=== PATIENT | female | born 1950 | race African-American/Black ===

== ENCOUNTER 2016-12-28 15:19 | Inpatient (IN) ==
[2016-12-28] MEDS ORDERED: PANTOPRAZOLE 40 MG VIAL IV STA (17:25)
[2016-12-28] MEDS ORDERED: LORazepam 2 MG/1 ML VIAL IV STA (17:25)
[2016-12-28] MEDS ORDERED: SODIUM CHLORIDE 0.9% 1,000 ML IV STA (17:25)
--- NOTE | 2016-12-28 17:34 | Emergency Department Note ---
IPat Brittany, am scribing for, and in the presence of, Brinda Donaldson DO 17: 30. IMendoza Debra, DO, personally performed the services described in this documentation, ascribed by Melania Stewart in my presence, and it is both accurate and complete [id number] . Arrival - Arrival Chief Complaint: GI Bleed/Rectal Stated Complaint: blood in stool ED Nursing Triage Note: BRIGHT RED BLOOD IN STOOL TODAY AROUND 1300 HOURS, HX OF DIVERTICULITIS Mode of Arrival: Ambulatory Limitations: No Limitations Source: Patient Time Seen by Provider: 12/28/16 17:18 - History of Present Illness HPI Narrative: This is a 66 y/o black female,who presents to the ED for further evaluation of hematochezia which started at 1315 today. She states the blood is bright red in color. She states she has had similar Sx in the past and was hospitalized for the Sx. She reports she has had 3 episodes of the bloody stools. She reports a known Hx of diverticulitis. Pt has no other complaints/pain in the ED at this time. Pt has a PMHx of IDDM, HTN, and diverticulitis. Pt denies a surgical Hx. Pt denies a family medical Hx. Pt denies a social Hx. Onset (ago): hour(s) (Started at 1315 today) Consistency: constant Severity: moderate, similar to previous episodes Allergies/Adverse Reactions: Allergies Allergy/AdvReac Type Severity Reaction Status Date / Time Penicillins Allergy RASH Verified 12/28/16 16:00 Home Medications: Home Medications Medication Instructions Recorded Confirmed Type Aspirin [Ecotrin] 81 mg PO QAM 07/23/15 12/28/16 History Ergocalciferol (Vitamin D2) 50,000 unit PO Q30D 07/23/15 12/28/16 History [Vitamin D2] Insulin Lispro Prot/Lisp 50/50 10 units SUBCUT TID W/MEALS 07/23/15 12/28/16 History [HumaLOG Mix 50/50] Omeprazole 20 mg PO BID 07/23/15 12/28/16 History rOPINIRole [Requip] 0.5 mg PO BEDTIME 07/23/15 12/28/16 History Atorvastatin [Lipitor] 10 mg PO QAM 10/11/16 12/28/16 History Celecoxib [Celebrex] 200 mg PO QAM 10/11/16 12/28/16 History Gabapentin Cap/Tab [Neurontin 300 mg PO QAM 10/11/16 12/28/16 History Cap/Tab] Losartan [Cozaar] 50 mg PO QAM 10/11/16 12/28/16 History Review of System - Review of System 12 point system: reviewed and no additional remarkable complaints except as stated - Review of System Gastrointestinal: Present: hematochezia Medical,Surgical,& Family Hx - Medical History Cardio: History of: Hypertension Endocrine: History of: Diabetes Mellitus (IDDM) Gastrointestinal: History of: Diverticulitis/ Diverticulosis Musculoskeletal: History of: Musculoskeletal Problems (GENERALIZED ARTHRITIS) - Social History Smoking Status: Never smoker Exam Vital Signs: Vital Signs Temperature 98.2 F 12/28/16 15:57 Pulse Rate 114 H 12/28/16 15:57 Respiratory Rate 16 12/28/16 15:57 Blood Pressure 116/73 12/28/16 15:57 O2 Sat by Pulse Oximetry 108 H 12/28/16 15:57 - General General appearance: in no apparent distress - Head Head exam: Present: atraumatic, normocephalic, normal inspection - Eye Eye exam: Present: normal appearance, PERRL, EOMI. Absent: nystagmus, miosis, mydriasis - ENT ENT exam: Present: normal exam, normal oropharynx, mucous membranes moist, TM's normal bilaterally, normal external ear exam - Neck Neck exam: Present: normal inspection, full ROM, trachea midline. Absent: tenderness, meningismus, lymphadenopathy, thyromegaly - Chest Chest inspection: Present: normal inspection, symmetric chest wall rise. Absent : tenderness, rash, abscess - Respiratory Respiratory exam: Present: normal lung sounds bilaterally. Absent: rales, respiratory distress, rhonchi, stridor, wheezes - Cardiovascular Cardiovascular exam: Present: normal rhythm, tachycardia, normal heart sounds. Absent: murmur, rubs, gallop, clicks, JVD - Rectal Exam Rectal exam: Present: deferred - Extremities Exam Extremities exam: Present: normal inspection, full ROM, normal capillary refill. Absent: tenderness, pedal edema, joint swelling, calf tenderness - Back Exam Back exam: Present: normal inspection, full ROM. Absent: tenderness, muscle spasm, rashes - Neurological Exam Neurological exam: Present: alert, oriented X3, CN II-XII intact. Absent: motor sensory deficit - Psychiatric Psychiatric exam: Present: anxious. Absent: normal affect, normal mood, depressed, agitated, flat affect - Skin Skin exam: Present: warm, dry, intact, normal color. Absent: rash, cyanosis, diaphoresis, erythema, pallor, mottled Course Course Narrative: pt has had 3 or 4 bloody stools since being here, she reports . spoke with Dr Caballero who will admit pt Results - Labs CBC & BMP: 12/28/16 17:48 12/28/16 17:48 Lab Results: I have reviewed the patients labs Labs: Laboratory Tests 12/28/16 12/28/16 12/28/16 17:48 17:48 17:48 WBC 5.8 RBC 3.13 L Hgb 9.4 L Hct 28.1 L MCV 89.8 MCH 30 MCHC 33.5 RDW 13.4 Plt Count 161 MPV 11.0 Neut % (Auto) 65.5 Lymph % (Auto) 24.4 [facility] % (Auto) 9.1 Eos % (Auto) 0.5 Baso % (Auto) 0.2 Neut # (Auto) 3.8 Lymph # (Auto) 1.4 [facility] # (Auto) 0.5 Eos # (Auto) 0.0 Baso # (Auto) 0.0 Immature Gran % 0.3 Nucleated RBC % 0.0 Immature Gran # 0.02 Nucleated RBCs # 0.00 INR 1.1 PT Patient/Control Mix 11.4 Circ Anticoag PTT 25.9 Sodium 143 Potassium 4.0 Chloride 110 H Carbon Dioxide 21 Anion Gap 16.0 H BUN 32 H Creatinine 1.30 H GFR Calculation 57 BUN/Creatinine Ratio 24.00 H Glucose 154 H Calculated Osmolality 294.0 Calcium 9.3 Total Bilirubin 0.40 AST 29 ALT 24 Alkaline Phosphatase 69 Total Protein 6.7 Albumin 3.3 L Globulin 3.4 Albumin/Globulin Ratio 0.9 L Lipase 12/28/16 17:48 WBC RBC Hgb Hct MCV MCH MCHC RDW Plt Count MPV Neut % (Auto) Lymph % (Auto) [facility] % (Auto) Eos % (Auto) Baso % (Auto) Neut # (Auto) Lymph # (Auto) [facility] # (Auto) Eos # (Auto) Baso # (Auto) Immature Gran % Nucleated RBC % Immature Gran # Nucleated RBCs # INR PT Patient/Control Mix Circ Anticoag PTT Sodium Potassium Chloride Carbon Dioxide Anion Gap BUN Creatinine GFR Calculation BUN/Creatinine Ratio Glucose Calculated Osmolality Calcium Total Bilirubin AST ALT Alkaline Phosphatase Total Protein Albumin Globulin Albumin/Globulin Ratio Lipase 160.0 - Diagnostic Findings Procedure: CT Abdomen and Pelvis: other (diverticulosis is present. 2. Bilateral renal hypodenese lesions within the left reanl cortex and rigth parapelvic kidney possibly reflect cysts. 3. Other findings as detailed. ) Disposition Clinical Impression: Lower gastrointestinal hemorrhage Case discussed with: patient Disposition: Still a Patient Condition: Stable Time of Disposition: 19:54
[2016-12-28] MEDS ORDERED: PANTOPRAZOLE 40 MG VIAL IV ONE (17:39)
[2016-12-28] MEDS ORDERED: LORazepam 2 MG/1 ML VIAL ONE (17:40)
[2016-12-28 18:15] LABS: Basophils % 0.2 % (0.0-0.8); Eosinophils % 0.5 % (0.00-10.9); Hematocrit 28.1 VOL% (35.7-47.0); Hemoglobin 9.4 GM/DL (12.0-16.0); Immature Granulocytes % 0.3 %; Immature Granulocytes Absolute 0.02 #; Lymphocytes # 1.4 10*3/uL (1.4-4.0); Lymphocytes % 24.4 % (21.3-54.2); Mean Corpuscular HGB Conc 33.5 GM/DL (32-36); Mean Corpuscular Hemoglobin 30 PG (27-34); Mean Corpuscular Volume 89.8 FL (87-102); Monocytes # 0.5 10*3/uL (0.11-0.8); Monocytes % 9.1 % (1.7-12.7); Neutrophils # 3.8 10*3/uL (1.4-7.4); Neutrophils % 65.5 % (38.7-73.9); Platelet Count 161 T/CUMM (130-400); Red Blood Count 3.13 MC/CUMM (3.8-5.5); Red Cell Distribution Width 13.4 % (9.3-17.3); White Blood Count 5.8 T/CUMM (4-12)
[2016-12-28 18:27] LABS: INR 1.1; PT Patient Result 11.4 SECS; Partial Thromboplastin Time 25.9 SECS (0-40)
[2016-12-28 18:53] LABS: Albumin 3.3 G/DL (3.4-5.0); Bilirubin,Total 0.4 MG/DL (0.2-1.0); Calcium 9.3 MG/DL (8.5-10.1); Total Protein 6.7 G/DL (6.4-8.3)
--- NOTE | 2016-12-28 19:36 | CT Report ---
CT abdomen pelvis wo con Indication: "Bleeding" no other history provided. Comparison: None. Technique: CT of the abdomen and pelvis was performed without administration of intravenous contrast. The CT examination was performed using one or more of the following dose reduction techniques: Automatic exposure control, adjustment of the mA and kV according to patient size, use of acute or iterative reconstruction techniques. Findings: The evaluation of "bleeding" is significantly limited by lack of intravenous contrast. Lower chest demonstrates no evidence of acute pathology. Gallbladder is surgically absent. The noncontrast enhanced liver is grossly unremarkable. Spleen is normal in size. Pancreas is grossly normal. The adrenal glands and kidneys demonstrate no acute findings. Hypoattenuating lesion left renal cortex measures 19 mm and possibly reflects cyst. Additional parapelvic hypoattenuating lesion right kidney image #41 measures 2.4 cm and could reflect additional cyst. Evaluation is limited secondary to lack of intravenous contrast. A moderate amount of stool is noted within the rectum. Minimal diverticulosis is present involving the splenic flexure and upper descending colon. A few scattered diverticula distally are present within the right hemicolon. The appendix is unremarkable. No adenopathy is demonstrated. The uterus is surgically absent. Bony structures demonstrate degenerative changes of the lumbar spine with loss of intervertebral disc space at L2-3 and vacuum disc phenomenon noted at L2-3 as well as L4-5. Soft tissues and musculature of the body wall demonstrate no acute findings. Impression: 1. Colonic diverticulosis is present. 2. Bilateral renal hypodense lesions within the left renal cortex and right parapelvic kidney possibly reflect cysts. 3. Other findings as detailed. 12/28/2016 7:21 PM PROCEDURE INTERPRETED AT [facility] DEPARTMENT OF RADIOLOGY Final Report Signed by: Dr. Oscar Cronin
--- NOTE | 2016-12-28 20:17 | Hospitalist History & Physical ---
Assessment and Plan - Time spent with patient Time spent with patient: Greater than 30 minutes (1) Lower gastrointestinal hemorrhage Status: Acute Assessment and plan: Admit to inpatient. Serial HHs. Consult GI. Dont anticipate scope until saturday, will order a diabetic diet. Current Visit: Yes (2) Diabetes mellitus Status: Acute Assessment and plan: Accuchecks and SSI. Diabetic diet. Current Visit: Yes (3) Hypertension Status: Acute Assessment and plan: Continue home medications. Current Visit: Yes History of Present Illness Chief complaint: bright red blood per rectum History of present illness: Ms. Diez is a 66 year old female with diabetes mellitus, diverticulosis, prior history of GI bleed, hypertension, who presents with rectal bleeding. She states it began suddenly at 1:15pm, had the urge to defecate and went to the restroom and noticed a large volume of bright red bloody stool. Denies mucous. She immediately came to the ER where she continues to have bright red bloody bowel movements. She states she had something similar twice in the past and it was due to "diverticulosis". She denies chest pain, SOB, abdominal pain, nausea , vomiting, hematemesis, melena, fever, chills, lightheadedness, syncope. Home Medications Medication Instructions Recorded Confirmed Type Aspirin [Ecotrin] 81 mg PO QAM 07/23/15 12/28/16 History Ergocalciferol (Vitamin D2) 50,000 unit PO Q30D 07/23/15 12/28/16 History [Vitamin D2] Insulin Lispro Prot/Lisp 50/50 10 units SUBCUT TID W/MEALS 07/23/15 12/28/16 History [HumaLOG Mix 50/50] Omeprazole 20 mg PO BID 07/23/15 12/28/16 History rOPINIRole [Requip] 0.5 mg PO BEDTIME 07/23/15 12/28/16 History Atorvastatin [Lipitor] 10 mg PO QAM 10/11/16 12/28/16 History Celecoxib [Celebrex] 200 mg PO QAM 10/11/16 12/28/16 History Gabapentin Cap/Tab [Neurontin 300 mg PO QAM 10/11/16 12/28/16 History Cap/Tab] Losartan [Cozaar] 50 mg PO QAM 10/11/16 12/28/16 History Allergies Allergy/AdvReac Type Severity Reaction Status Date / Time Penicillins Allergy RASH Verified 12/28/16 16:00 Medical,Surgical,& Family Hx - Medical History Cardio: History of: Hypertension Endocrine: History of: Diabetes Mellitus (IDDM) Gastrointestinal: History of: Diverticulitis/ Diverticulosis Musculoskeletal: History of: Musculoskeletal Problems (GENERALIZED ARTHRITIS) - Social History Smoking Status: Never smoker 12 point system: reviewed and no additional remarkable complaints except as stated - Constitutional Constitutional: Absent: chills, daytime sleepiness, excessive sweating, fatigue , fever(s), frequent falls, headache(s), increased appetite, lethargy, weakness , weight gain, weight loss - EENT Nose, mouth and throat: Absent: epistaxis, headache(s), nasal congestion, neck mass, neck pain, throat swelling, tongue swelling - Cardiovascular Cardiovascular: Absent: chest pain at rest, chest pain with activity, dyspnea, dyspnea on exertion, edema, orthopnea, palpitations - Respiratory Respiratory: Absent: cough, dyspnea, hemoptysis, dyspnea on exertion, wheezing - Gastrointestinal Gastrointestinal: Present: other (bright red blood per rectum). Absent: abdominal pain, bloating, change in bowel habits, coffee ground emesis, constipation, cramping, diarrhea, dyspepsia, dysphagia, early satiety, fecal incontinence, heartburn, hematemesis, hematochezia - Genitourinary Genitourinary: Absent: difficulty urinating, hematuria, menorrhagia, urinary hesitancy, urinary incontinence - Musculoskeletal Musculoskeletal: Absent: arthralgias, joint swelling - Neurological Neurological: Absent: behavioral changes, confusion, disequilibrium, dizziness, focal weakness, frequent falls, headache(s), numbness, syncope - Endocrine Endocrine: Absent: cold intolerance, heat intolerance, polydipsia, polyuria Exam - Constitutional Vitals: Period Temp Pulse Resp BP Sys/Osorio Pulse Ox Last 24 Hr 98.2 F-98.2 F 114-114 16-16 116-116/73-73 108 General appearance: no acute distress - Head Head exam: Present: normocephalic, atraumatic - Eye Eye exam: Present: EOMI Pupils: Present: MARISOL - ENT ENT exam: Present: normal exam - Neck Neck exam: Present: normal inspection - Respiratory Respiratory exam: Present: clear to auscultation bilaterally. Absent: rhonchi, wheezes - Cardiovascular Cardiovascular exam: Present: regular rate and rhythm. Absent: gallop, rubs, systolic murmur - GI/Abdominal GI/Abdominal exam: Present: normal bowel sounds, soft. Absent: distended, firm , guarding, tenderness, rebound - Extremities Exam Extremities exam: Present: normal inspection. Absent: calf tenderness, edema Results - Labs CBC & BMP: 12/28/16 17:48 12/28/16 17:48 Lab Results: I have reviewed the past 24 hour labs
[2016-12-28] MEDS ORDERED: DEXTROSE 50% 25 GM/50 ML VIAL IV PRN (20:30)
[2016-12-28] MEDS ORDERED: GLUCAGON 1 MG VIAL IM PRN (20:30)
[2016-12-28] MEDS: INSULIN LISPRO 100 UNIT/ML SUBCUT SCH (21:43)
[2016-12-28] MEDS: rOPINIRole 0.25 MG TABLET PO SCH (21:43)
[2016-12-29 06:12] LABS: Calcium 8.9 MG/DL (8.5-10.1); Osmolality,Calculated 289.1 MOS/KG (273-304); Potassium 4.3 MMOL/L (3.5-5.1)
[2016-12-29 07:23] LABS: Eosinophils % 0.6 % (0.00-10.9); Hematocrit 24.1 VOL% (35.7-47.0); Immature Granulocytes % 0.4 %; Immature Granulocytes Absolute 0.02 #; Lymphocytes # 1.5 10*3/uL (1.4-4.0); Lymphocytes % 28.9 % (21.3-54.2); Mean Corpuscular HGB Conc 33.2 GM/DL (32-36); Mean Corpuscular Hemoglobin 30 PG (27-34); Mean Corpuscular Volume 90.3 FL (87-102); Monocytes # 0.5 10*3/uL (0.11-0.8); Monocytes % 8.8 % (1.7-12.7); Neutrophils # 3.1 10*3/uL (1.4-7.4); Neutrophils % 61.3 % (38.7-73.9); Platelet Count 135 T/CUMM (130-400); Red Blood Count 2.67 MC/CUMM (3.8-5.5); Red Cell Distribution Width 13.5 % (9.3-17.3); White Blood Count 5.1 T/CUMM (4-12)
[2016-12-29] MEDS: LOSARTAN 50 MG TABLET PO SCH (08:55)
[2016-12-29] MEDS: ATORVASTATIN 10 MG TABLET PO SCH (08:55)
[2016-12-29] MEDS: GABAPENTIN 300 MG CAPSULE PO SCH (08:55)
[2016-12-29] MEDS: PANTOPRAZOLE 40 MG VIAL IV SCH (08:56)
[2016-12-29] MEDS: INSULIN LISPRO 100 UNIT/ML SUBCUT SCH ×5 (08:56→20:57)
--- NOTE | 2016-12-29 09:26 | Gastrointestinal Consult Note ---
Assessment and Plan - Time spent with patient Time spent with patient: Greater than 30 minutes (1) Lower gastrointestinal hemorrhage Status: Acute Current Visit: Yes (2) Anemia Status: Acute Current Visit: Yes (3) Other specified counseling Status: Acute Current Visit: Yes History of Present Illness History of present illness: Ms. Diez is a 66 year old female Home Medications Medication Instructions Recorded Confirmed Type Aspirin [Ecotrin] 81 mg PO QAM 07/23/15 12/28/16 History Ergocalciferol (Vitamin D2) 50,000 unit PO Q30D 07/23/15 12/28/16 History [Vitamin D2] Insulin Lispro Prot/Lisp 50/50 10 units SUBCUT TID W/MEALS 07/23/15 12/28/16 History [HumaLOG Mix 50/50] Omeprazole 20 mg PO BID 07/23/15 12/28/16 History rOPINIRole [Requip] 0.5 mg PO BEDTIME 07/23/15 12/28/16 History Atorvastatin [Lipitor] 10 mg PO QAM 10/11/16 12/28/16 History Celecoxib [Celebrex] 200 mg PO QAM 10/11/16 12/28/16 History Gabapentin Cap/Tab [Neurontin 300 mg PO QAM 10/11/16 12/28/16 History Cap/Tab] Losartan [Cozaar] 50 mg PO QAM 10/11/16 12/28/16 History Allergies Allergy/AdvReac Type Severity Reaction Status Date / Time Penicillins Allergy RASH Verified 12/28/16 16:00 Medical,Surgical,& Family Hx - Medical History Cardio: History of: Hypertension Endocrine: History of: Diabetes Mellitus (IDDM) Gastrointestinal: History of: Diverticulitis/ Diverticulosis Musculoskeletal: History of: Back/Neck Problems, Degenerative Disk Disease, Musculoskeletal Problems (GENERALIZED ARTHRITIS) - Surgical History Reproductive Surgeries: Surgical HX of;: Hysterectomy Orthopedic Surgeries: Surgical HX of;: Orthopedic Surgery (right knee) - Social History Smoking Status: Never smoker Frequency of Alcohol Use: None Type of Drug Use: None Exam - Constitutional Vitals: Period Temp Pulse Resp BP Sys/Osorio Pulse Ox Last 24 Hr 97.4 F-98.6 F 77-99 16-18 97-141/56-77 98-100 Results - Labs CBC & BMP: 12/29/16 06:51 12/29/16 05:18 Note Addendum: PLEASE NOTE -- automatic citation of patient information is unavoidable in this electronic note. I have made a reasonable effort to review the information cited , but it is not a part of my evaluation, impression, or recommendation unless specifically discussed in the dictated text that follows. As well, voice recognition software was used in the creation of this clinical note. Reasonable effort was made to identify and correct gross errors. Despite proofreading, errors in photograph mounter may be present, including nonsense verbiage at times. If you encounter such an error, please contact me at [phone] for discussion and correction. -- Stefany Chief complaint: gastrointestinal bleeding History of present illness: This is a new patient, a 66-year-old female seen by consultation for evaluation of rectal bleeding. The patient is admitted to the hospitalist service under the care of Dr. Mathew with a primary diagnosis of same. The patient was admitted yesterday through the emergency department with primary complaint of several episodes of bright red blood per rectum. Evaluation at that time revealed hemoglobin less than 10 g/dL, tachycardia without hypotension, and clinical stability generally. She reports at least two prior instances of rectal bleeding, 2003 and 2008, judged to be related to diverticular disease per her understanding. Since her admission she has been treated conservatively with crystalloid resuscitation and has no further bowel movements documented. Her hemodynamics have remained stable. Her hemoglobin has dropped to 8 g/dL but she has not required transfusion at this point. She reports a history of gastroesophageal reflux requiring daily proton pump inhibitor. She also reports regular use of both Celebrex and baby aspirin. She is unaware of any prior diagnosis of gastrointestinal ulceration. Patient denies fever, chills, night sweats, rigors, headache, dizziness, neck pain, visual changes, redness of the eyes, dysphagia, odynophagia, difficulty chewing, chest pain, shortness of breath, abdominal pain, weight loss, hematemesis, diarrhea, proctalgia, constipation, dysuria, skin changes, temperature regulation issues, flushing, easy bleeding/bruising, mental status change, numbness/weakness in the extremities, yellowing of the eyes/skin, cutaneous eruptions, family history of gastrointestinal cancer and colon polyps , and other complaints in general. Review of systems: 12 point review of systems was negative except as documented above. Outpatient medications: aspirin, vitamin D2, insulin, omeprazole, Requip, Lipitor, Celebrex, Neurontin, Cozaar Inpatient medications: Lipitor, Neurontin, insulin, Cozaar, Protonix, Requip Past Medical History: hypertension, diabetes, diverticulosis/diverticulitis, osteoarthritis Social history: negative tobacco. Negative alcohol Family history: no gastrointestinal cancers Physical examination: Vital Signs: Current vital signs reviewed and documented above. General Appearance: sitting in bedside chair. Comfortable. Not acutely ill. Head: Normocephalic. Neck: Palpation of the neck revealed no abnormalities. Eyes: No scleral icterus. No scleral injection. No conjunctival pallor. Oral Cavity: Odor of breath was normal. No drooling was observed. Lips showed no abnormalities. Floor of the mouth showed no abnormalities. Pharynx: Oropharynx was normal. Lungs: Respiration rhythm and depth was normal. Cardiovascular: Heart rate and rhythm were normal. No murmurs were appreciated. Abdomen: abdomen was not distended. Abdominal palpation revealed no tenderness and no hepatosplenomegaly. Ascites was not discovered. Abdominal auscultation revealed positive bowel sounds. Musculoskeletal System: Musculoskeletal system was grossly normal. Neurological: level of consciousness was normal. Speech was normal. Skin: General appearance was normal. Color and pigmentation were normal. No skin lesions. Laboratory: white blood count 5.1, hemoglobin 8.0, hematocrit 24.1, platelets 135, INR 1.1, PT 11.4, ALT 24, AST 29, total bilirubin 0.4, alkaline phosphatase 69, total protein 6.7 Radiology: CT of the abdomen and pelvis, December 28, 2016 -- colonic diverticulosis ; moderate amount of stool in the rectum; incidental non-gastrointestinal findings Impressions: 1. Hematochezia -- the differential diagnosis includes diverticular bleeding, infectious/inflammatory enterocolitis, arteriovenous malformation, hemorrhoidal bleeding, colon polyps (including cancer), and upper gastrointestinal bleeding. I recommend serial hemoglobin and hematocrit monitoring with transfusion as indicated. I recommend aggressive crystalloid resuscitation as indicated. I recommend intravenous proton pump inhibitor. Patient will need colonoscopy with timing dependent on clinical progress. If bleeding continues, this will need to be done during this admission. As well, given that the patient has not had any colonoscopy since 2008, it would be prudent and logistically convenient to monitor the patient over the weekend with plan to pursue colonoscopy on Saturday. 2. Acute blood loss anemia -- as documented, this is likely from diverticular bleeding. I recommend continued monitoring and management both during the admission discharge. 3. Other specified counseling -- The patient was seen for greater than 30 minutes. The patient was counseled for greater than 50% of this time regarding differential diagnosis, likely diagnosis, diagnostic and therapeutic alternatives, risks/benefits/alternatives of medications and procedures, and plan of care generally. The patient expressed understanding and wishes to proceed. Recommendations: -- aggressive crystalloid resuscitation -- transfusion as indicated -- serial hemoglobin and hematocrit monitoring -- colonoscopy with timing dependent on clinical progress -- patient may need upper endoscopy if bleeding continues and colonoscopy is nondiagnostic -- patient may need video capsule endoscopy if upper and lower endoscopy is nondiagnostic -- continued monitoring and management of anemia both during the admission and after discharge -- thank you for consultation. We will follow with you.
--- NOTE | 2016-12-29 16:34 | Hospitalist Progress Note ---
Assessment and Plan (1) Lower gastrointestinal hemorrhage Status: Acute Assessment and plan: Patient is not actively bleeding at this point. She is consulted to GI. Plan for Saturday. In the meantime patient will be observed closely on E. If bleeding continues as entailed by serial hemograms will his GI know. From the look of things at this point it looks like the lower GI bleeding was quite brisk. She will be a hypotension developed crystalloids will be given will check hematocrit and if indicated transfuse the patient. All his blood pressure remains normal try to avoid crystalloids and allow for eating and oral fluid resuscitation. She will be n.p.o. from midnight on Saturday. 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 Continue serial H&H every 12 hours. Current Visit: Yes Qualifiers: Anemia type: other cause Other causes of anemia: other cause, not classified Qualified Code(s): D64.89 - Other specified anemias Hospitalist: Subjective Interval history: Patient is seen interviewed and examined and chart has been reviewed. There are no complaints she has today is nausea. She has not noted any more hematochezia. Consultation from gastroenterology is greatly appreciated. Her last H&H was 8 and 24.1 I will repeat H&H 1800 hrs. this evening and at 600 hours tomorrow. Exam - Constitutional Vitals: Period Temp Pulse Resp BP Sys/Osorio Pulse Ox Last 24 Hr 97.4 F-98.6 F 77-100 16-18 92-141/42-77 95-100 General appearance: over weight - Head Head exam: Present: normal inspection, normocephalic - Eye Eye exam: Present: EOMI Pupils: Present: MARISOL - ENT ENT exam: Present: normal oropharynx - Neck Neck exam: Present: normal inspection, other (Supple neck no adenopathy no JVD) - Cardiovascular Cardiovascular exam: Present: regular rate and rhythm, other (Obtain an EKG) - GI/Abdominal GI/Abdominal exam: Present: normal bowel sounds, soft - Extremities Exam Extremities exam: Present: full ROM - Back Exam Back exam: Present: normal inspection - Neurological Exam Neurological exam: Present: alert, oriented X3, CN II-XII intact - Psychiatric Psychiatric exam: Present: normal affect, normal mood Results - Labs CBC & BMP: 12/29/16 06:51 12/29/16 05:18 Lab Results: I have reviewed the past 24 hour labs (Repeat H&H every 12 hours 24 hours)
[2016-12-29 17:20] LABS: Hematocrit 24.9 VOL% (35.7-47.0); Hemoglobin 8.1 GM/DL (12.0-16.0)
[2016-12-29] MEDS: rOPINIRole 0.25 MG TABLET PO SCH (20:56)
[2016-12-30] MEDS: LOSARTAN 50 MG TABLET PO SCH (08:23)
[2016-12-30] MEDS: PANTOPRAZOLE 40 MG VIAL IV SCH (08:23)
[2016-12-30] MEDS: ATORVASTATIN 10 MG TABLET PO SCH (08:23)
[2016-12-30] MEDS: GABAPENTIN 300 MG CAPSULE PO SCH (08:23)
[2016-12-30] MEDS: INSULIN LISPRO 100 UNIT/ML SUBCUT SCH ×4 (08:24→22:58)
[2016-12-30 10:04] LABS: Hematocrit 23.8 VOL% (35.7-47.0); Hemoglobin 7.9 GM/DL (12.0-16.0)
--- NOTE | 2016-12-30 10:31 | Gastrointestinal Progress Note ---
Assessment and Plan (1) Lower gastrointestinal hemorrhage Status: Acute Current Visit: Yes (2) Anemia Status: Acute Current Visit: Yes Qualifiers: Anemia type: other cause Other causes of anemia: other cause, not classified Qualified Code(s): D64.89 - Other specified anemias (3) Other specified counseling Status: Acute Current Visit: Yes Exam (Progress Note) - Constitutional Vitals: Period Temp Pulse Resp BP Sys/Osorio Pulse Ox Last 24 Hr 97.2 F-97.9 F 88-114 18-20 92-115/42-74 95-100 Results - Labs CBC & BMP: 12/30/16 09:30 12/29/16 05:18 Note Addendum: PLEASE NOTE -- automatic citation of patient information is unavoidable in this electronic note. I have made a reasonable effort to review the information cited , but it is not a part of my evaluation, impression, or recommendation unless specifically discussed in the dictated text that follows. As well, voice recognition software was used in the creation of this clinical note. Reasonable effort was made to identify and correct gross errors. Despite proofreading, errors in dental receptionist may be present, including nonsense verbiage at times. If you encounter such an error, please contact me at [phone] for discussion and correction. -- Stefany Chief complaint: gastrointestinal bleeding History of present illness: this is a 66-year-old female seen for follow-up of suspected lower gastrointestinal bleeding. Vital signs have been stable overnight. Blood counts have remained stable. One bowel movement was noted overnight with a small amount of bright red blood. The patient reports feeling reasonably well this morning. Review of systems: 12 point review of systems was negative except as documented above. Inpatient medications: Lipitor, Neurontin, insulin, Cozaar, Protonix, Requip Physical examination: Vital Signs: Current vital signs reviewed and documented above. General Appearance: sitting in bedside chair. Comfortable. Not acutely ill. Head: Normocephalic. Neck: Palpation of the neck revealed no abnormalities. Eyes: No scleral icterus. No scleral injection. No conjunctival pallor. Oral Cavity: Odor of breath was normal. No drooling was observed. Lips showed no abnormalities. Floor of the mouth showed no abnormalities. Pharynx: Oropharynx was normal. Lungs: Respiration rhythm and depth was normal. Cardiovascular: Heart rate and rhythm were normal. No murmurs were appreciated. Abdomen: abdomen was not distended. Abdominal palpation revealed no tenderness and no hepatosplenomegaly. Ascites was not discovered. Abdominal auscultation revealed positive bowel sounds. Musculoskeletal System: Musculoskeletal system was grossly normal. Neurological: level of consciousness was normal. Speech was normal. Skin: General appearance was normal. Color and pigmentation were normal. No skin lesions. Laboratory: hemoglobin 7.9, hematocrit 23.8 Radiology: reviewed Impressions: 1. Hematochezia -- minimal overt bleeding is noted overnight. I recommend continued monitoring with transfusion as indicated. After some discussion with the patient, I will recommend inpatient colonoscopy to be accomplished tomorrow. The patient will need to have intervenes access by whatever means necessary in order to facilitate transfusion should that come to pass and to allow for sedation. 2. Acute blood loss anemia -- as documented, this is likely from diverticular bleeding. The volume of bleeding has tremendous significantly but could resume. As discussed we will plant colonoscopy for tomorrow. 3. Other specified counseling -- The patient was seen for greater than 30 minutes. The patient was counseled for greater than 50% of this time regarding differential diagnosis, likely diagnosis, diagnostic and therapeutic alternatives, risks/benefits/alternatives of medications and procedures, and plan of care generally. The patient expressed understanding and wishes to proceed. Recommendations: -- aggressive crystalloid resuscitation -- transfusion as indicated -- serial hemoglobin and hematocrit monitoring -- colonoscopy Saturday -- patient may need upper endoscopy if colonoscopy is nondiagnostic -- patient may need video capsule endoscopy if upper and lower endoscopy is nondiagnostic -- continued monitoring and management of anemia both during the admission and after discharge -- thank you for consultation. Dr. Salinas will assume G.I. care for this patient tomorrow.
[2016-12-30] MEDS ORDERED: BISACODYL 5 MG TABLET PO ONE (12:00)
--- NOTE | 2016-12-30 13:28 | Hospitalist Progress Note ---
Assessment and Plan (1) Lower gastrointestinal hemorrhage Status: Acute Assessment and plan: Patient is not actively bleeding at this point. She is consulted to GI. Plan for Saturday. In the meantime patient will be observed closely on E. If bleeding continues as entailed by serial hemograms will his GI know. From the look of things at this point it looks like the lower GI bleeding was quite brisk. She will be closely watched; if hypotension developed crystalloids will be given will check hematocrit and if indicated transfuse the patient. All her blood pressure remains normal try to avoid crystalloids and allow for eating and oral fluid in avoid further dilutional drop in hematocrit. She will be n.p.o. from midnight today. 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 Continue serial H&H every 12 hours. Current Visit: Yes Qualifiers: Anemia type: other cause Other causes of anemia: other cause, not classified Qualified Code(s): D64.89 - Other specified anemias Hospitalist: Subjective Interval history: Patient has been seen interviewed and examined and chart has been reviewed. She is reporting that she is feeling a whole of better today. Over the last 24 hours only 1 stool with some blood on it. Hematocrit has remained stable. Her IV came out but she will need to have an INT. Encourage fluids by mouth. She allowed to be n.p.o. after midnight pending colonoscopy tomorrow. Exam - Constitutional Vitals: Period Temp Pulse Resp BP Sys/Osorio Pulse Ox Last 24 Hr 97.2 F-98.1 F 88-114 18-20 92-112/42-61 95-100 General appearance: over weight - Head Head exam: Present: normocephalic - Eye Eye exam: Present: EOMI Pupils: Present: MARISOL - ENT ENT exam: Present: normal exam, normal oropharynx - Neck Neck exam: Present: normal inspection - Respiratory Respiratory exam: Present: clear to auscultation bilaterally - Cardiovascular Cardiovascular exam: Present: regular rate and rhythm - GI/Abdominal GI/Abdominal exam: Present: normal bowel sounds, soft - Extremities Exam Extremities exam: Present: full ROM - Back Exam Back exam: Present: normal inspection - Neurological Exam Neurological exam: Present: alert, oriented X3, normal gait, CN II-XII intact - Psychiatric Psychiatric exam: Present: normal affect, normal mood, depressed - Skin Skin exam: Present: normal color, warm, dry Results - Labs CBC & BMP: 12/30/16 09:30 12/29/16 05:18 Lab Results: I have reviewed the past 24 hour labs (Hematocrit is remained stable between yesterday and today. Noticed that yesterday hemoglobin was 8.100 is 7.9 which could be within standard statistical error of measurement will continue H&H every 12 hours)
[2016-12-30] MEDS ORDERED: POLYETHYLENE GLYCOL 3350/ELECTROLYTES 4,000 ML BOTTLE PO ONE (18:00)
[2016-12-30 21:20] LABS: Hematocrit 25.7 VOL% (35.7-47.0); Hemoglobin 8.3 GM/DL (12.0-16.0)
[2016-12-30] MEDS: rOPINIRole 0.25 MG TABLET PO SCH (21:30)
--- NOTE | 2016-12-31 07:54 | EKG Report ---
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
[2016-12-31 09:13] LABS: Hematocrit 23.3 VOL% (35.7-47.0); Hemoglobin 7.7 GM/DL (12.0-16.0)
[2016-12-31] MEDS: INSULIN LISPRO 100 UNIT/ML SUBCUT SCH ×4 (09:30→22:43)
[2016-12-31] MEDS ORDERED: LIDOCAINE 100 MG/5 ML SYRINGE ONE (12:27)
[2016-12-31] MEDS ORDERED: PROPOFOL 200 MG/20 ML VIAL IV ONE (12:27)
--- NOTE | 2016-12-31 12:29 | History and Physical Update ---
History and Physical Update - Physical Exam Mental Status: alert and oriented Heart: regular rate and rhythm Lung: clear to auscultation Abdomen: within normal limits Vitals: within normal limits History and Physical Changes: 66-year-old female was admitted for evaluation of recent lower GI bleeding.
--- NOTE | 2016-12-31 12:51 | Anesthesia Post-Op ---
Anesthesia Post OP - Post Ansesthetic Evaluation Patient seen in post op: Yes Resp: within normal limits CV: within normal limits Mental: within normal limits Temp: within normal limits [id number]: within normal limits Nausea and Vomiting: within normal limits Pain: within normal limits
--- NOTE | 2016-12-31 12:53 | Operative Note ---
Date of procedure: 12/31/16 Pre-op diagnosis: Lower GI bleeding Procedure: Procedure note: Colonoscopy with hot biopsy removal polyp Physician: Dr. Charli Salinas Brief clinical abstract: Patient is a 66-year-old female admitted with hematochezia/lower GI bleeding. She has not required transfusion but her hemoglobin is down to the 7.5 range. She has been hemodynamically stable. Endoscopic findings: After informed consent was obtained, the patient was placed in the left lateral decubitus position. Digital rectal exam was performed with no palpable abnormalities felt. Pediatric videocolonoscope was inserted into the rectum and advanced to the cecum without difficulty. Retroflex view within the cecum was performed back to the level of the hepatic flexure. The endoscope was advanced back to the cecum and on withdrawal colonic mucosa was carefully examined. Bowel prep was of good quality. No blood was seen in the colon. Small 4 mm polyp was noted in the distal ascending colon and removed with hot biopsy forceps. Distal to this no other polyps were seen. Scattered diverticula were noted throughout the colon. No bleeding stigmata were visualized to be associated with these. Vascular pattern throughout the colon appeared normal. The endoscope was withdrawn in the rectum with retroflex view showing small internal hemorrhoids. The endoscope was then removed. She appeared to tolerate procedure well. Impression: #1 ascending colon polyp #2 diverticulosis coli-appears to be likely source of bleeding #3 small internal hemorrhoids Plan: Advance diet. Continue to observe for another 24 hours at least. Blood transfusion support as needed. Anesthesia: MAC Surgeon / Physician: Richi Salinas Estimated blood loss: none Specimens: other (Ascending colon polyp) Condition: stable Disposition: post procedure unit Results - Labs CBC & BMP: 12/31/16 08:46 12/29/16 05:18 Discharge Plan - Discharge Medications No Action rOPINIRole [Requip] 0.5 mg PO BEDTIME Omeprazole 20 mg PO BID Ergocalciferol (Vitamin D2) [Vitamin D2] 50,000 unit PO Q30D Aspirin [Ecotrin] 81 mg PO QAM Insulin Lispro Prot/Lisp 50/50 [HumaLOG Mix 50/50] 10 units SUBCUT TID W/ MEALS Losartan [Cozaar] 50 mg PO QAM Atorvastatin [Lipitor] 10 mg PO QAM Celecoxib [Celebrex] 200 mg PO QAM Gabapentin Cap/Tab [Neurontin Cap/Tab] 300 mg PO QAM - Follow Up or Referral - Forms/Instructions
--- NOTE | 2016-12-31 13:03 | Hospitalist Progress Note ---
Assessment and Plan (1) Lower gastrointestinal hemorrhage Status: Acute Assessment and plan: Patient is not actively bleeding at this point. She is consulted to GI. Plan for Saturday. In the meantime patient will be observed closely on 5 E. If bleeding continues as entailed by serial hemograms will his GI know. From the look of things at this point it looks like the lower GI bleeding was quite brisk. She will be closely watched; if hypotension developed crystalloids will be given will check hematocrit and if indicated transfuse the patient. All her blood pressure remains normal try to avoid crystalloids and allow for eating and oral fluid in avoid further dilutional drop in hematocrit. Resume feeding. Current Visit: Yes (2) Diabetes mellitus Status: Acute Current Visit: Yes Qualifiers: Diabetes mellitus type: type 2 Diabetes mellitus complication detail: with other oral complications Diabetes mellitus custodial insulin use: with technician terminal and repeater use (3) Hypertension Status: Acute Assessment and plan: Continue home medications for blood pressure Current Visit: Yes (4) Anemia Status: Acute Assessment and plan: This is most likely acute on chronic blood loss anemia will verify. Continue serial H&H every 12 hours. Current Visit: Yes Qualifiers: Anemia type: other cause Other causes of anemia: other cause, not classified Qualified Code(s): D64.89 - Other specified anemias Hospitalist: Subjective Interval history: Patient been seen interviewed and examined chart has been reviewed. Patient was seen prior to going to endoscopy suite. However patient is now back from endoscopy suite as I am dictating this note. Patient was found to have diverticulosis in the colon suspicious for source of bleeding. No other lesions were found. Will observe her hematocrit here another 24 hours. Exam - Constitutional Vitals: Period Temp Pulse Resp BP Sys/Osorio Pulse Ox Last 24 Hr 97.3 F-98.5 F 102-128 16-24 95-127/45-76 93-100 General appearance: normal weight - Head Head exam: Present: normocephalic, atraumatic - Eye Eye exam: Present: EOMI Pupils: Present: MARISOL - ENT ENT exam: Present: normal exam - Neck Neck exam: Present: normal inspection - Respiratory Respiratory exam: Present: clear to auscultation bilaterally - Cardiovascular Cardiovascular exam: Present: regular rate and rhythm - GI/Abdominal GI/Abdominal exam: Present: normal bowel sounds, soft - Extremities Exam Extremities exam: Present: full ROM - Back Exam Back exam: Present: normal inspection - Neurological Exam Neurological exam: Present: alert, oriented X3, CN II-XII intact - Psychiatric Psychiatric exam: Present: normal affect, normal mood - Skin Skin exam: Present: normal color, warm, dry Results - Labs CBC & BMP: 12/31/16 08:46 12/29/16 05:18 Lab Results: I have reviewed the past 24 hour labs (Repeat H&H in the morning)
[2016-12-31] MEDS: LOSARTAN 50 MG TABLET PO SCH (15:42)
[2016-12-31] MEDS: ATORVASTATIN 10 MG TABLET PO SCH (15:42)
[2016-12-31] MEDS: GABAPENTIN 300 MG CAPSULE PO SCH (15:42)
[2016-12-31] MEDS: PANTOPRAZOLE 40 MG TABLET PO SCH (15:42)
[2016-12-31] MEDS: rOPINIRole 0.25 MG TABLET PO SCH (21:01)
[2016-12-31 21:25] LABS: Hemoglobin 7.4 GM/DL (12.0-16.0)
[2017-01-01 07:21] LABS: Calcium 8.5 MG/DL (8.5-10.1); Magnesium 1.5 MG/DL (1.8-2.4); Osmolality,Calculated 289.3 MOS/KG (273-304); Potassium 3.9 MMOL/L (3.5-5.1)
[2017-01-01 08:08] LABS: Eosinophils # 0.1 10*3/uL (0.0-0.87); Eosinophils % 1.4 % (0.00-10.9); Hematocrit 21.7 VOL% (35.7-47.0); Hemoglobin 7.3 GM/DL (12.0-16.0); Immature Granulocytes % 0.5 %; Immature Granulocytes Absolute 0.03 #; Lymphocytes # 1.4 10*3/uL (1.4-4.0); Lymphocytes % 25.7 % (21.3-54.2); Mean Corpuscular HGB Conc 33.6 GM/DL (32-36); Mean Corpuscular Hemoglobin 30 PG (27-34); Mean Corpuscular Volume 89.7 FL (87-102); Mean Platelet Volume 10.9 FL (9.6-12.0); Monocytes # 0.6 10*3/uL (0.11-0.8); Monocytes % 10.5 % (1.7-12.7); Neutrophils # 3.4 10*3/uL (1.4-7.4); Neutrophils % 61.9 % (38.7-73.9); Platelet Count 161 T/CUMM (130-400); Red Blood Count 2.42 MC/CUMM (3.8-5.5); Red Cell Distribution Width 13.4 % (9.3-17.3); White Blood Count 5.5 T/CUMM (4-12)
--- NOTE | 2017-01-01 09:07 | Gastrointestinal Progress Note ---
<Ronda Fay - Last Filed: 01/01/17 09:04> Assessment and Plan (1) Lower gastrointestinal hemorrhage Status: Acute Assessment and plan: 01/01-no reports of overt bleeding. Hemoglobin at 7.3. Colonoscopy findings noted with likely source of diverticular bleeding. Polyp biopsy report pending. No complaints of abdominal pain. Plan an addendum to followed by Dr. Salinas. Current Visit: Yes Gastroenterology - PN: Subj Interval history: CC: Lower GI bleed Patient seen awake alert sitting up in chair. States she is feeling well this morning. Denies any abdominal pain, nausea or vomiting. Denies any overt bleeding. Patient's colonoscopy report noted to show diverticulitis being the likely source of her bleeding. Colon polyp also removed with biopsy pending. Hemoglobin remains low today at 7.3. Abdomen is soft, nontender. ROS: Denies shortness of breath or chest pain Exam (Progress Note) - Constitutional Vitals: Period Temp Pulse Resp BP Sys/Osorio Pulse Ox Last 24 Hr 97.2 F-100 F 90-128 18-24 83-124/52-77 93-100 General appearance: normal weight, no acute distress - Head Head exam: Present: normal inspection, normocephalic - Eye Eye exam: Present: other (Lids and conjunctivae unremarkable). Absent: scleral icterus - ENT ENT exam: Present: normal exam - Neck Neck exam: Present: normal inspection - Respiratory Respiratory exam: Present: clear to auscultation bilaterally. Absent: rales, rhonchi, wheezes - Cardiovascular Cardiovascular exam: Present: regular rate and rhythm. Absent: diastolic murmur , JVD, systolic murmur - GI/Abdominal GI/Abdominal exam: Present: normal bowel sounds, soft. Absent: ascites, distended, mass, organomegaly, tenderness - Extremities Exam Extremities exam: Present: normal inspection, full ROM - Back Exam Back exam: Present: normal inspection - Neurological Exam Neurological exam: Present: alert, oriented X3 - Psychiatric Psychiatric exam: Present: normal affect, normal mood - Skin Skin exam: Present: normal color, warm, dry Results - Labs CBC & BMP: 01/01/17 07:24 01/01/17 05:38 Lab Results: I have reviewed the past 24 hour labs <Richi Salinas - Last Filed: 01/01/17 13:45> Exam (Progress Note) - Constitutional Vitals: Period Temp Pulse Resp BP Sys/Osorio Pulse Ox Last 24 Hr 97.2 F-100 F 90-119 18-20 83-124/54-73 96-100 Results - Labs CBC & BMP: 01/01/17 07:24 01/01/17 05:38
[2017-01-01] MEDS: LOSARTAN 50 MG TABLET PO SCH (09:50)
[2017-01-01] MEDS: INSULIN LISPRO 100 UNIT/ML SUBCUT SCH ×4 (09:50→21:42)
[2017-01-01] MEDS: GABAPENTIN 300 MG CAPSULE PO SCH (09:50)
[2017-01-01] MEDS: PANTOPRAZOLE 40 MG TABLET PO SCH (09:50)
[2017-01-01] MEDS: ATORVASTATIN 10 MG TABLET PO SCH (09:50)
--- NOTE | 2017-01-01 12:51 | Hospitalist Progress Note ---
Assessment and Plan (1) Lower gastrointestinal hemorrhage Status: Acute Assessment and plan: Patient is not actively bleeding at this point. She is consulted to GI. Plan for Saturday. In the meantime patient will be observed closely on 5 E. If bleeding continues as entailed by serial hemograms will his GI know. From the look of things at this point it looks like the lower GI bleeding was quite brisk. She will be closely watched; if hypotension developed crystalloids will be given will check hematocrit and if indicated transfuse the patient. All her blood pressure remains normal try to avoid crystalloids and allow for eating and oral fluid in avoid further dilutional drop in hematocrit. Resume feeding. Consensus at this point is this was a diverticular bleed. Repeat H&H in the morning. 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 We will repeat his pneumonia Current Visit: Yes Qualifiers: Anemia type: other cause Other causes of anemia: other cause, not classified Qualified Code(s): D64.89 - Other specified anemias Hospitalist: Subjective Interval history: Patient has been seen interviewed and examined. Underwent colonoscopy yesterday with removal of polyp. We are observing her hemoglobin C. If this does not change then plan for upper endoscopy may be counseled. As of now patient is put back on meals gastroenterology is following. Exam - Constitutional Vitals: Period Temp Pulse Resp BP Sys/Osorio Pulse Ox Last 24 Hr 97.2 F-100 F 90-119 18-22 83-124/54-77 96-100 General appearance: over weight - Head Head exam: Present: normocephalic, atraumatic - Eye Eye exam: Present: EOMI Pupils: Present: MARISOL - ENT ENT exam: Present: normal exam - Neck Neck exam: Present: normal inspection - Respiratory Respiratory exam: Present: clear to auscultation bilaterally - Cardiovascular Cardiovascular exam: Present: regular rate and rhythm - Extremities Exam Extremities exam: Present: normal inspection, full ROM, other (Edema no cyanosis ) - Back Exam Back exam: Present: normal inspection - Neurological Exam Neurological exam: Present: alert, oriented X3, CN II-XII intact - Psychiatric Psychiatric exam: Present: normal affect, normal mood - Skin Skin exam: Present: normal color, warm, dry Results - Labs CBC & BMP: 01/01/17 07:24 01/01/17 05:38 Lab Results: I have reviewed the past 24 hour labs
[2017-01-01] MEDS: rOPINIRole 0.25 MG TABLET PO SCH (21:43)
[2017-01-02 06:38] LABS: Hematocrit 22.8 VOL% (35.7-47.0); Hemoglobin 7.4 GM/DL (12.0-16.0)
--- NOTE | 2017-01-02 08:40 | Gastrointestinal Progress Note ---
Assessment and Plan (1) Lower gastrointestinal hemorrhage Status: Acute Assessment and plan: 01/02-no overt bleeding reported. Tolerating diet. Hemoglobin 7.4. Path report returned as tubular adenoma. Will give MiraLAX today. Plan an addendum to follow Dr. Salinas. 01/01-no reports of overt bleeding. Hemoglobin at 7.3. Colonoscopy findings noted with likely source of diverticular bleeding. Polyp biopsy report pending. No complaints of abdominal pain. Plan an addendum to followed by Dr. Salinas. Current Visit: Yes Gastroenterology - PN: Subj Interval history: CC: Lower GI bleed Patient is seen awake alert sitting up in chair. States she is feeling well and had an uneventful night. Patient's hemoglobin is holding at 7.4 with no reports of overt bleeding. Patient states she has not had a bowel movement since her colonoscopy prep. She takes MiraLAX at home daily for this. She is tolerating her diet with good appetite noted. Abdomen is soft, nontender. Patient states she is feels she is ready for discharge today. Pathology report noted to be returned as tubular adenoma. ROS: Denies shortness of breath or chest pain Exam (Progress Note) - Constitutional Vitals: Period Temp Pulse Resp BP Sys/Osorio Pulse Ox Last 24 Hr 97.4 F-98.8 F 99-110 16-20 99-124/50-70 97-100 - Other Additional findings: General appearance: normal weight, no acute distress - Head Head exam: Present: normal inspection, normocephalic - Eye Eye exam: Present: other (Lids and conjunctivae unremarkable). Absent: scleral icterus - ENT ENT exam: Present: normal exam - Neck Neck exam: Present: normal inspection - Respiratory Respiratory exam: Present: clear to auscultation bilaterally. Absent: rales, rhonchi, wheezes - Cardiovascular Cardiovascular exam: Present: regular rate and rhythm. Absent: diastolic murmur , JVD, systolic murmur - GI/Abdominal GI/Abdominal exam: Present: normal bowel sounds, soft. Absent: ascites, distended, mass, organomegaly, tenderness - Extremities Exam Extremities exam: Present: normal inspection, full ROM - Back Exam Back exam: Present: normal inspection - Neurological Exam Neurological exam: Present: alert, oriented X3 - Psychiatric Psychiatric exam: Present: normal affect, normal mood - Skin Skin exam: Present: normal color, warm, dry Results - Labs CBC & BMP: 01/02/17 06:21 01/01/17 05:38 Lab Results: I have reviewed the past 24 hour labs
[2017-01-02] MEDS ORDERED: POLYETHYLENE GLYCOL POWDER 17 GM PACK PO SCH (09:00)
[2017-01-02] MEDS: PANTOPRAZOLE 40 MG TABLET PO SCH (10:29)
[2017-01-02] MEDS: LOSARTAN 50 MG TABLET PO SCH (10:29)
[2017-01-02] MEDS: INSULIN LISPRO 100 UNIT/ML SUBCUT SCH ×2 (10:30→12:53)
[2017-01-02] MEDS: ATORVASTATIN 10 MG TABLET PO SCH (10:30)
[2017-01-02] MEDS: GABAPENTIN 300 MG CAPSULE PO SCH (10:30)
--- NOTE | 2017-01-02 11:38 | Discharge Summary ---
Hospital Course - Hospital Course Hospital Course: Ms. Diez is a 66 year old female with diabetes mellitus, diverticulosis, prior history of GI bleed, hypertension, who presented on 12/28 with rectal bleeding. She states it began suddenly. She had the urge to defecate and went to the restroom and noticed a large volume of bright red bloody stool.She immediately came to the ER where she continues to have bright red bloody bowel movements. She states she had something similar twice in the past and it was due to "diverticulosis". H&H was noted to be 9.4 & 28.1. Patient was admitted for further evaluation and treatment. GI was consulted to assist with care of patient. Serial H&H's were monitored on patient and IV fluids were administered. H&H dropped to Colonoscopy was performed on 12/31. Patient was found to have an and ascending colon polyp (which was removed), diverticulosis, and small internal hemorrhoids. Pt. stablized and was cleared for discharge. Pt. h&h at time of discharge was 7.4/22.8 with no signs of overt bleeding noted. VS stable. Pt. to follow up as necessary. Diagnosis - Discharge Diagnosis (1) Lower gastrointestinal hemorrhage Status: Acute (2) Diabetes mellitus Status: Acute (3) Hypertension Status: Acute (4) Anemia Status: Acute Specialty Discharge - Follow Up or Referrals Discharge Plan - Discharge Data Disposition: Disch To Home/Self Care Condition at Discharge: Stable Discharge Diet: advance to your usual diet Activity: resume usual activities as tolerated Hygiene: no restrictions Weight Bearing at Discharge: full weight bearing Contact your physician if you experience:: fever over 101, Nausea/Vomiting, Bleeding - Discharge Medications Continue rOPINIRole [Requip] 0.5 mg PO BEDTIME Omeprazole 20 mg PO BID Ergocalciferol (Vitamin D2) [Vitamin D2] 50,000 unit PO Q30D Aspirin [Ecotrin] 81 mg PO QAM Insulin Lispro Prot/Lisp 50/50 [HumaLOG Mix 50/50] 10 units SUBCUT TID W/ MEALS Losartan [Cozaar] 50 mg PO QAM Atorvastatin [Lipitor] 10 mg PO QAM Gabapentin Cap/Tab [Neurontin Cap/Tab] 300 mg PO QAM Discontinued Celecoxib [Celebrex] 200 mg PO QAM - Follow Up or Referral - Forms/Instructions Instructions: Gastrointestinal Bleeding (GEN), Anemia (GEN) Exam - Constitutional Vitals: Period Temp Pulse Resp BP Sys/Osorio Pulse Ox Last 24 Hr 98.6 F 102 18 109/65 99 General appearance: over weight - Head Head exam: Present: normocephalic, atraumatic - Eye Eye exam: Present: EOMI Pupils: Present: MARISOL - ENT ENT exam: Present: normal exam - Neck Neck exam: Present: normal inspection - Respiratory Respiratory exam: Present: clear to auscultation bilaterally - Cardiovascular Cardiovascular exam: Present: regular rate and rhythm - GI/Abdominal GI/Abdominal exam: Present: normal bowel sounds, soft - Extremities Exam Extremities exam: Present: full ROM - Back Exam Back exam: Present: normal inspection - Neurological Exam Neurological exam: Present: alert, oriented X3, CN II-XII intact - Psychiatric Psychiatric exam: Present: normal affect, normal mood - Skin Skin exam: Present: normal color, warm, dry Discharge Results Labs on day of discharge: Labs from last 24 hours 01/02/17 11:31 POC Glucose 372 H DS: Provider Date of admission: 12/28/16 19:58 Primary care physician: Wiley Dietrich MD Attending physician on admission: Joselito Ventura MD Consults: 12/28/16 20:32 Consult to Physician [CONS] Routine Comment: BRBPR Consulting Provider: Richi Salinas Consult to Specialist Group: Gastroenterology When should Consulting Provider be notified: In am Person Notified: RAUL LEYVA Date Notified: 12/31/16 Time Notified: 09:45 Discharging clinician: Ander Mathew MD
[2017-01-02 11:47] VITALS: BP 109/65
== END 2017-01-02 12:56 | disposition home or self-care (01) | DRG 378 ==
LOC: N.ED 15:19 → SUATTDRO 19:58 → N.EDINP 19:58 → N.5E 21:02
PROVIDERS: ADMIT Student in an Organized Health Care Education/Training Program; ATTEND Internal Medicine Infectious Disease

== ENCOUNTER 2017-06-06 18:24 | Inpatient (IN) ==
[2017-06-06] MEDS ORDERED: SODIUM CHLORIDE 0.9% 1,000 ML IV STA (19:27)
[2017-06-06 19:30] LABS: Basophils % 0.2 % (0.0-0.8); Eosinophils % 0.6 % (0.00-10.9); Hematocrit 19.2 VOL% (35.7-47.0); Immature Granulocytes % 0.5 %; Immature Granulocytes Absolute 0.03 #; Lymphocytes # 1.7 10*3/uL (1.4-4.0); Lymphocytes % 26.7 % (21.3-54.2); Mean Corpuscular HGB Conc 33.9 GM/DL (32-36); Mean Corpuscular Hemoglobin 29 PG (27-34); Mean Corpuscular Volume 86.9 FL (87-102); Monocytes # 0.5 10*3/uL (0.11-0.8); Monocytes % 8.2 % (1.7-12.7); Neutrophils % 63.8 % (38.7-73.9); Platelet Count 128 T/CUMM (130-400); Red Blood Count 2.21 MC/CUMM (3.8-5.5); Red Cell Distribution Width 16.4 % (9.3-17.3); White Blood Count 6.2 T/CUMM (4-12)
[2017-06-06 19:32] LABS: Hemoglobin 6.5 GM/DL (12.0-16.0)
[2017-06-06] MEDS ORDERED: SODIUM CHLORIDE 0.9% 250 ML IV PRN (19:34)
[2017-06-06 19:41] LABS: PT Patient Result 10.7 SECS; Partial Thromboplastin Time 28.2 SECS (0-40)
[2017-06-06] MEDS ORDERED: ACETAMINOPHEN 325 MG TABLET PO PRN (19:59)
[2017-06-06] MEDS ORDERED: ONDANSETRON 4 MG/2 ML VIAL IV PRN (19:59)
[2017-06-06] MEDS ORDERED: SODIUM CHLORIDE 0.9% 1,000 ML IV ONE (20:03)
[2017-06-06 20:05] LABS: Alanine Aminotransferase 11 U/L (13-56); Alkaline Phosphatase 82 U/L (45-117); Aspartate Amino Transferase 13 U/L (0-37); Bilirubin,Total < 0.39 MG/DL (0.2-1.0); Blood Urea Nitrogen 30 MG/DL (7-18); Calcium 8.4 MG/DL (8.5-10.1); Glucose 150 MG/DL (74-106); Osmolality,Calculated 291.1 MOS/KG (273-304); Potassium 4.3 MMOL/L (3.5-5.1); Sodium 142 MMOL/L (136-145); Troponin I Only < 0.015 NG/ML (0.00-0.045)
[2017-06-06 21:12] LABS: Magnesium 1.7 MG/DL (1.8-2.4); Thyroid Stimulating Hormone 0.484 uIU/ml (0.358-3.74)
[2017-06-06] MEDS: SODIUM CHLORIDE 0.9% 1,000 ML IV SCH (23:28)
[2017-06-07] MEDS ORDERED: DEXTROSE 50% 25 GM/50 ML VIAL IV PRN (00:05)
[2017-06-07] MEDS ORDERED: GLUCAGON 1 MG VIAL IM PRN (00:05)
[2017-06-07] MEDS: PANTOPRAZOLE 40 MG VIAL IV SCH ×3 (00:17→20:56)
[2017-06-07 07:26] LABS: Basophils % 0.2 % (0.0-0.8); Eosinophils # 0.1 10*3/uL (0.0-0.87); Eosinophils % 1.4 % (0.00-10.9); Hematocrit 25.4 VOL% (35.7-47.0); Hemoglobin 8.6 GM/DL (12.0-16.0); Immature Granulocytes % 0.2 %; Immature Granulocytes Absolute 0.01 #; Lymphocytes # 1.5 10*3/uL (1.4-4.0); Lymphocytes % 30.7 % (21.3-54.2); Mean Corpuscular HGB Conc 33.9 GM/DL (32-36); Mean Corpuscular Hemoglobin 30 PG (27-34); Mean Platelet Volume 11.3 FL (9.6-12.0); Monocytes # 0.7 10*3/uL (0.11-0.8); Monocytes % 13.3 % (1.7-12.7); Neutrophils # 2.7 10*3/uL (1.4-7.4); Neutrophils % 54.2 % (38.7-73.9); Platelet Count 104 T/CUMM (130-400); Red Blood Count 2.92 MC/CUMM (3.8-5.5); Red Cell Distribution Width 15.3 % (9.3-17.3); White Blood Count 4.9 T/CUMM (4-12)
[2017-06-07] MEDS ORDERED: INSULIN LISPRO 100 UNIT/ML SUBCUT SCH (07:30)
[2017-06-07 07:55] LABS: Calcium 8.1 MG/DL (8.5-10.1); Osmolality,Calculated 290.7 MOS/KG (273-304); Potassium 4.3 MMOL/L (3.5-5.1)
[2017-06-07] MEDS: ATORVASTATIN 10 MG TABLET PO SCH (09:15)
[2017-06-07] MEDS ORDERED: SODIUM CHLORIDE 0.9% 250 ML IV PRN (09:54)
[2017-06-07] MEDS ORDERED: FUROSEMIDE 40 MG/4 ML VIAL IV ONE (09:57)
[2017-06-07] MEDS: SODIUM CHLORIDE 0.9% 1,000 ML IV SCH ×2 (11:11→12:00)
[2017-06-07] MEDS: INSULIN LISPRO 100 UNIT/ML SUBCUT SCH ×2 (15:15→17:34)
[2017-06-07 16:28] LABS: Apearance,Urine CLEAR (Clear); Bacteria,Urine Few /HPF (Few); Bilirubin,Urine Negative (Negative); Blood, Urine Negative (Negative); Glucose,Urine (UA) Negative (Negative); Ketones,Urine 5 mg/dL (Negative); Nitrite,Urine Negative (Negative); Protein,Urine Negative; RBC,Urine <1 /HPF (0-4); Squamous Epithelial Cell,Urine Occasional /HPF (0-10); Urine Color Straw (Yellow); Urine Specific Gravity 1.005 (1.001-1.035); Urine Urobilinogen < 2.0 EU/DL (0.2-1.0); WBC,Urine <1 /HPF (0-6)
[2017-06-07 19:26] LABS: Hematocrit 31.6 VOL% (35.7-47.0)
[2017-06-07 19:35] LABS: Hemoglobin 10.9 GM/DL (12.0-16.0)
[2017-06-07] MEDS: rOPINIRole 1 MG TABLET PO SCH (20:55)
[2017-06-08] MEDS: SODIUM CHLORIDE 0.9% 1,000 ML IV SCH ×5 (00:33→23:16)
[2017-06-08 06:46] LABS: Calcium 8.3 MG/DL (8.5-10.1); Osmolality,Calculated 284.1 MOS/KG (273-304)
[2017-06-08 07:32] LABS: Apearance,Urine Slightly Hazy (Clear); Bacteria,Urine Moderate /HPF (Few); Bilirubin,Urine Negative (Negative); Blood, Urine Moderate mg/dL (Negative); Glucose,Urine (UA) Negative (Negative); Hyaline Casts,Urine 1 /LPF (0-3); Ketones,Urine 5 mg/dL (Negative); Mucus,Urine Occasional /LPF (Occasional); Nitrite,Urine Negative (Negative); Protein,Urine Negative; RBC,Urine 11 /HPF (0-4); Squamous Epithelial Cell,Urine Occasional /HPF (0-10); Urine Color Yellow (Yellow); Urine Urobilinogen < 2.0 EU/DL (0.2-1.0); WBC,Urine 40 /HPF (0-6)
[2017-06-08] MEDS: ATORVASTATIN 10 MG TABLET PO SCH (09:02)
[2017-06-08] MEDS: INSULIN LISPRO 100 UNIT/ML SUBCUT SCH ×4 (09:04→21:23)
[2017-06-08] MEDS: PANTOPRAZOLE 40 MG VIAL IV SCH ×2 (09:06→21:22)
[2017-06-08 14:53] LABS: Apearance,Urine Slightly Hazy (Clear); Bacteria,Urine Few /HPF (Few); Bilirubin,Urine Negative (Negative); Blood, Urine Moderate mg/dL (Negative); Glucose,Urine (UA) 50 mg/dL (Negative); Ketones,Urine Negative (Negative); Mucus,Urine Occasional /LPF (Occasional); Nitrite,Urine Negative (Negative); Protein,Urine Negative; RBC,Urine 34 /HPF (0-4); Squamous Epithelial Cell,Urine Occasional /HPF (0-10); Urine Color Yellow (Yellow); Urine Specific Gravity 1.012 (1.001-1.035); Urine Urobilinogen < 2.0 EU/DL (0.2-1.0); WBC,Urine 173 /HPF (0-6)
[2017-06-08] MEDS: rOPINIRole 1 MG TABLET PO SCH (21:19)
[2017-06-09 06:29] LABS: Basophils % 0.2 % (0.0-0.8); Eosinophils # 0.2 10*3/uL (0.0-0.87); Eosinophils % 2.9 % (0.00-10.9); Hematocrit 30.3 VOL% (35.7-47.0); Hemoglobin 10.1 GM/DL (12.0-16.0); Immature Granulocytes % 0.4 %; Immature Granulocytes Absolute 0.02 #; Lymphocytes # 1.3 10*3/uL (1.4-4.0); Lymphocytes % 25.2 % (21.3-54.2); Mean Corpuscular HGB Conc 33.3 GM/DL (32-36); Mean Corpuscular Hemoglobin 28 PG (27-34); Mean Corpuscular Volume 83.7 FL (87-102); Mean Platelet Volume 10.9 FL (9.6-12.0); Monocytes # 0.6 10*3/uL (0.11-0.8); Monocytes % 10.8 % (1.7-12.7); Neutrophils # 3.1 10*3/uL (1.4-7.4); Neutrophils % 60.5 % (38.7-73.9); Platelet Count 110 T/CUMM (130-400); Red Blood Count 3.62 MC/CUMM (3.8-5.5); Red Cell Distribution Width 17.5 % (9.3-17.3); White Blood Count 5.1 T/CUMM (4-12)
[2017-06-09 06:56] LABS: Calcium 8.3 MG/DL (8.5-10.1); Osmolality,Calculated 279.3 MOS/KG (273-304); Potassium 3.8 MMOL/L (3.5-5.1)
[2017-06-09] MEDS: INSULIN LISPRO 100 UNIT/ML SUBCUT SCH ×4 (07:30→20:04)
[2017-06-09] MEDS: ATORVASTATIN 10 MG TABLET PO SCH (08:37)
[2017-06-09] MEDS: PANTOPRAZOLE 40 MG VIAL IV SCH ×2 (08:37→20:09)
[2017-06-09] MEDS: SODIUM CHLORIDE 0.9% 1,000 ML IV SCH (17:50)
[2017-06-09] MEDS: rOPINIRole 1 MG TABLET PO SCH (20:06)
[2017-06-10 05:34] LABS: Basophils % 0.2 % (0.0-0.8); Eosinophils # 0.2 10*3/uL (0.0-0.87); Eosinophils % 3.3 % (0.00-10.9); Hematocrit 32.5 VOL% (35.7-47.0); Hemoglobin 10.8 GM/DL (12.0-16.0); Immature Granulocytes % 0.4 %; Immature Granulocytes Absolute 0.02 #; Lymphocytes # 1.3 10*3/uL (1.4-4.0); Mean Corpuscular HGB Conc 33.2 GM/DL (32-36); Mean Corpuscular Hemoglobin 28 PG (27-34); Mean Corpuscular Volume 82.9 FL (87-102); Mean Platelet Volume 10.6 FL (9.6-12.0); Monocytes # 0.6 10*3/uL (0.11-0.8); Neutrophils # 3.1 10*3/uL (1.4-7.4); Neutrophils % 59.1 % (38.7-73.9); Platelet Count 130 T/CUMM (130-400); Red Blood Count 3.92 MC/CUMM (3.8-5.5); Red Cell Distribution Width 17.3 % (9.3-17.3); White Blood Count 5.2 T/CUMM (4-12)
[2017-06-10 06:05] LABS: Calcium 8.9 MG/DL (8.5-10.1); Osmolality,Calculated 279.3 MOS/KG (273-304); Potassium 3.7 MMOL/L (3.5-5.1)
[2017-06-10] MEDS: INSULIN LISPRO 100 UNIT/ML SUBCUT SCH ×4 (07:30→21:01)
[2017-06-10] MEDS ORDERED: LIDOCAINE 100 MG/5 ML SYRINGE ONE (12:48)
[2017-06-10] MEDS ORDERED: PROPOFOL 200 MG/20 ML VIAL IV ONE (12:48)
[2017-06-10] MEDS: ATORVASTATIN 10 MG TABLET PO SCH (16:15)
[2017-06-10] MEDS: PANTOPRAZOLE 40 MG VIAL IV SCH ×2 (16:18→21:01)
[2017-06-10] MEDS: LISPRO SUBCUT SCH (16:19)
[2017-06-10] MEDS: INSULIN LISPRO PROTAMINE SUBCUT SCH (16:19)
[2017-06-10] MEDS: SODIUM CHLORIDE 0.9% 1,000 ML IV SCH (16:26)
[2017-06-10] MEDS ORDERED: traMADol 50 MG TABLET PO PRN (16:36)
[2017-06-10] MEDS ORDERED: GABAPENTIN 300 MG CAPSULE PO SCH (21:00)
[2017-06-10] MEDS: rOPINIRole 1 MG TABLET PO SCH (21:01)
[2017-06-10] MEDS: CIPROFLOXACIN 500 MG TABLET PO SCH (21:01)
[2017-06-11 05:50] LABS: Basophils % 0.2 % (0.0-0.8); Eosinophils # 0.1 10*3/uL (0.0-0.87); Eosinophils % 2.9 % (0.00-10.9); Hematocrit 31.6 VOL% (35.7-47.0); Hemoglobin 10.8 GM/DL (12.0-16.0); Immature Granulocytes % 0.2 %; Immature Granulocytes Absolute 0.01 #; Lymphocytes # 1.2 10*3/uL (1.4-4.0); Lymphocytes % 25.4 % (21.3-54.2); Mean Corpuscular HGB Conc 34.2 GM/DL (32-36); Mean Corpuscular Hemoglobin 28 PG (27-34); Mean Corpuscular Volume 83.2 FL (87-102); Mean Platelet Volume 11.1 FL (9.6-12.0); Monocytes # 0.6 10*3/uL (0.11-0.8); Monocytes % 12.6 % (1.7-12.7); Neutrophils # 2.8 10*3/uL (1.4-7.4); Neutrophils % 58.7 % (38.7-73.9); Platelet Count 137 T/CUMM (130-400); Red Cell Distribution Width 17.3 % (9.3-17.3); White Blood Count 4.8 T/CUMM (4-12)
[2017-06-11] MEDS: INSULIN LISPRO 100 UNIT/ML SUBCUT SCH (07:49)
[2017-06-11 08:18] VITALS: BP 136/75
[2017-06-11] MEDS: INSULIN LISPRO PROTAMINE SUBCUT SCH (08:38)
[2017-06-11] MEDS: ATORVASTATIN 10 MG TABLET PO SCH (08:38)
[2017-06-11] MEDS: CIPROFLOXACIN 500 MG TABLET PO SCH (08:38)
[2017-06-11] MEDS: LISPRO SUBCUT SCH (08:38)
[2017-06-11] MEDS: PANTOPRAZOLE 40 MG VIAL IV SCH (08:38)
[2017-06-11] MEDS ORDERED: LOSARTAN 50 MG TABLET PO SCH (09:00)
== END 2017-06-11 10:34 | disposition home or self-care (01) | DRG 378 ==
LOC: N.ED 18:24 → N.EDINP 19:57 → N.CC 21:53 → N.4E 06-08 14:23
PROVIDERS: ADMIT Internal Medicine; ATTEND Internal Medicine

== ENCOUNTER 2020-10-03 14:22 | Inpatient (IN) ==
[2020-10-03] MEDS ORDERED: GLUCAGON 1 MG VIAL IM PRN (14:33)
[2020-10-03] MEDS ORDERED: DEXTROSE 50% 25 GM/50 ML VIAL IV PRN (14:33)
[2020-10-03] MEDS ORDERED: SODIUM CHLORIDE 0.9% 1,000 ML IV PRN (14:39)
[2020-10-03 17:23] LABS: Hematocrit 26.4 VOL% (35.7-47.0); Hemoglobin 8.6 GM/DL (12.0-16.0)
[2020-10-03 17:42] LABS: Calcium 9.1 MG/DL (8.5-10.1); Osmolality,Calculated 296.8 MOS/KG (273-304); Potassium 4.6 MMOL/L (3.5-5.1)
[2020-10-03] MEDS: INSULIN LISPRO 100 UNIT/ML SUBCUT SCH ×2 (18:28→21:29)
[2020-10-03] MEDS: PANTOPRAZOLE 40 MG TABLET PO SCH (18:50)
[2020-10-03] MEDS: SODIUM CHLORIDE 0.9% 1,000 ML IV SCH (18:55)
[2020-10-03] MEDS: DOCUSATE SODIUM 100 MG CAPSULE PO SCH (20:36)
[2020-10-03] MEDS: ACETAMINOPHEN 325 MG TABLET PO PRN (22:50)
[2020-10-03] MEDS: ONDANSETRON 4 MG/2 ML VIAL IV PRN (22:50)
[2020-10-04] MEDS: SODIUM CHLORIDE 0.9% 1,000 ML IV SCH ×3 (04:37→20:12)
[2020-10-04 06:30] LABS: Basophils % 0.2 % (0.0-0.8); Eosinophils # 0.1 10*3/uL (0.0-0.87); Hematocrit 20.4 VOL% (35.7-47.0); Hemoglobin 6.7 GM/DL (12.0-16.0); Immature Granulocytes % 0.3 %; Immature Granulocytes Absolute 0.02 #; Lymphocytes # 2.5 10*3/uL (1.4-4.0); Lymphocytes % 41.1 % (21.3-54.2); Mean Corpuscular HGB Conc 32.8 GM/DL (32-36); Mean Corpuscular Volume 90.3 FL (87-102); Mean Platelet Volume 10.5 FL (9.6-12.0); Monocytes % 9.4 % (1.7-12.7); Platelet Count 120 T/CUMM (130-400); Red Blood Count 2.26 MC/CUMM (3.8-5.5); Red Cell Distribution Width 14.8 % (9.3-17.3); White Blood Count 6.1 T/CUMM (4-12)
[2020-10-04 06:51] LABS: Hypochromasia 2+; Microcytosis 1+; Platelet Estimate Normal
[2020-10-04 06:55] LABS: Alanine Aminotransferase 10 U/L (13-56); Albumin 2.5 G/DL (3.4-5.0); Alkaline Phosphatase 72 U/L (45-117); Aspartate Amino Transferase 13 U/L (0-37); Bilirubin,Total < 0.39 MG/DL (0.2-1.0); Blood Urea Nitrogen 36 MG/DL (7-18); Calcium 8.4 MG/DL (8.5-10.1); Carbon Dioxide 20 MMOL/L (21-32); Estimated Glom Filtration Rate 51 ML/MIN; Glucose 160 MG/DL (74-106); Osmolality,Calculated 296.8 MOS/KG (273-304); Potassium 4.7 MMOL/L (3.5-5.1); Sodium 144 MMOL/L (136-145); Total Protein 5.8 G/DL (6.4-8.3)
[2020-10-04] MEDS ORDERED: SODIUM CHLORIDE 0.9% 1,000 ML IV PRN (08:10)
[2020-10-04] MEDS ORDERED: NON-FORMULARY MEDICATION (Omeprazole 20 MG capsule,delayed release(DR/EC)) PO SCH (09:00)
[2020-10-04] MEDS: PANTOPRAZOLE 40 MG TABLET PO SCH (10:37)
[2020-10-04] MEDS: ERGOCALCIFEROL 50,000 UNIT CAPSULE PO SCH (10:37)
[2020-10-04] MEDS: MAGNESIUM CHLORIDE 64 MG TABLET PO SCH ×2 (10:37→20:12)
[2020-10-04] MEDS: ASPIRIN EC 81 MG TABLET PO SCH (10:37)
[2020-10-04] MEDS: LISPRO SUBCUT SCH ×3 (10:38→17:43)
[2020-10-04] MEDS: DOCUSATE SODIUM 100 MG CAPSULE PO SCH ×2 (10:38→20:11)
[2020-10-04] MEDS: GABAPENTIN 300 MG CAPSULE PO SCH ×4 (10:38→20:11)
[2020-10-04] MEDS: INSULIN LISPRO PROTAMINE SUBCUT SCH ×3 (10:38→17:43)
[2020-10-04] MEDS: LOSARTAN 50 MG TABLET PO SCH (10:58)
[2020-10-04] MEDS: INSULIN LISPRO 100 UNIT/ML SUBCUT SCH ×4 (10:58→21:13)
[2020-10-04] MEDS ORDERED: LISPRO SUBCUT SCH (12:00)
[2020-10-04] MEDS ORDERED: INSULIN LISPRO PROTAMINE SUBCUT SCH (12:00)
[2020-10-04 18:55] LABS: Hematocrit 23.3 VOL% (35.7-47.0); Hemoglobin 7.6 GM/DL (12.0-16.0)
[2020-10-05 05:40] LABS: Basophils % 0.2 % (0.0-0.8); Eosinophils # 0.1 10*3/uL (0.0-0.87); Eosinophils % 2.3 % (0.00-10.9); Hematocrit 23.9 VOL% (35.7-47.0); Hemoglobin 7.7 GM/DL (12.0-16.0); Immature Granulocytes % 0.5 %; Immature Granulocytes Absolute 0.03 #; Lymphocytes # 2.2 10*3/uL (1.4-4.0); Lymphocytes % 38.5 % (21.3-54.2); Mean Corpuscular HGB Conc 32.2 GM/DL (32-36); Mean Corpuscular Volume 92.6 FL (87-102); Mean Platelet Volume 11.3 FL (9.6-12.0); Monocytes % 8.3 % (1.7-12.7); Neutrophils % 50.2 % (38.7-73.9); Platelet Count 99 T/CUMM (130-400); Red Blood Count 2.58 MC/CUMM (3.8-5.5); Red Cell Distribution Width 14.8 % (9.3-17.3); White Blood Count 5.8 T/CUMM (4-12)
[2020-10-05 06:03] LABS: Hypochromasia 1+; Microcytosis 1+; Ovalocytes Slight; Platelet Estimate Decreased
[2020-10-05 06:08] LABS: Calcium 8.3 MG/DL (8.5-10.1); Osmolality,Calculated 293.8 MOS/KG (273-304); Potassium 4.5 MMOL/L (3.5-5.1)
[2020-10-05] MEDS ORDERED: ALUMINUM/MAGNES/SIMETH MAX STR 30 ML UDCUP PO PRN (08:19)
[2020-10-05] MEDS ORDERED: SODIUM CHLORIDE 0.9% 1,000 ML IV PRN ×2 (08:20→11:15)
[2020-10-05] MEDS: LISPRO SUBCUT SCH ×3 (09:18→19:46)
[2020-10-05] MEDS: INSULIN LISPRO PROTAMINE SUBCUT SCH ×3 (09:18→19:46)
[2020-10-05] MEDS: INSULIN LISPRO 100 UNIT/ML SUBCUT SCH ×4 (09:18→23:40)
[2020-10-05] MEDS: ASPIRIN EC 81 MG TABLET PO SCH (09:21)
[2020-10-05] MEDS: MAGNESIUM CHLORIDE 64 MG TABLET PO SCH ×2 (09:22→21:52)
[2020-10-05] MEDS: GABAPENTIN 300 MG CAPSULE PO SCH ×4 (09:23→21:52)
[2020-10-05] MEDS: LOSARTAN 50 MG TABLET PO SCH (09:24)
[2020-10-05] MEDS: PANTOPRAZOLE 40 MG TABLET PO SCH (09:25)
[2020-10-05] MEDS: DOCUSATE SODIUM 100 MG CAPSULE PO SCH ×2 (09:32→21:52)
[2020-10-05] MEDS: SODIUM CHLORIDE 0.9% 1,000 ML IV SCH (11:51)
[2020-10-05] MEDS ORDERED: BISACODYL 5 MG TABLET PO ONE (12:00)
[2020-10-05] MEDS ORDERED: FUROSEMIDE 40 MG/4 ML VIAL IV ONE (13:00)
[2020-10-05] MEDS ORDERED: POLYETHYLENE GLYCOL POWDER 255 GM BOTTLE PO ONE (18:00)
[2020-10-06] MEDS ORDERED: SODIUM CHLORIDE 0.9% 1,000 ML IV ONE (01:09)
[2020-10-06 01:22] LABS: Hematocrit 24.8 VOL% (35.7-47.0); Hemoglobin 7.9 GM/DL (12.0-16.0)
[2020-10-06] MEDS: SODIUM CHLORIDE 0.9% 1,000 ML IV SCH ×3 (06:00→16:03)
[2020-10-06 06:29] LABS: Basophils % 0.1 % (0.0-0.8); Eosinophils # 0.1 10*3/uL (0.0-0.87); Eosinophils % 1.2 % (0.00-10.9); Hematocrit 23.8 VOL% (35.7-47.0); Hemoglobin 7.6 GM/DL (12.0-16.0); Immature Granulocytes % 0.4 %; Immature Granulocytes Absolute 0.03 #; Lymphocytes % 26.8 % (21.3-54.2); Mean Corpuscular HGB Conc 31.9 GM/DL (32-36); Mean Corpuscular Volume 93.3 FL (87-102); Mean Platelet Volume 10.8 FL (9.6-12.0); Monocytes % 7.9 % (1.7-12.7); Neutrophils % 63.6 % (38.7-73.9); Red Blood Count 2.55 MC/CUMM (3.8-5.5); White Blood Count 7.3 T/CUMM (4-12)
[2020-10-06 06:30] LABS: Platelet Count 123 T/CUMM (130-400)
[2020-10-06 06:45] LABS: Calcium 8.5 MG/DL (8.5-10.1); Hypochromasia 1+; Microcytosis 1+; Ovalocytes Slight; Potassium 4.5 MMOL/L (3.5-5.1)
[2020-10-06] MEDS: GABAPENTIN 300 MG CAPSULE PO SCH ×4 (09:10→22:05)
[2020-10-06] MEDS: DOCUSATE SODIUM 100 MG CAPSULE PO SCH ×2 (09:11→22:05)
[2020-10-06] MEDS: ASPIRIN EC 81 MG TABLET PO SCH (09:12)
[2020-10-06] MEDS: LOSARTAN 50 MG TABLET PO SCH (09:12)
[2020-10-06] MEDS: PANTOPRAZOLE 40 MG TABLET PO SCH (09:12)
[2020-10-06] MEDS: MAGNESIUM CHLORIDE 64 MG TABLET PO SCH ×2 (09:13→22:05)
[2020-10-06] MEDS: INSULIN LISPRO 100 UNIT/ML SUBCUT SCH ×4 (09:17→22:06)
[2020-10-06] MEDS: LISPRO SUBCUT SCH ×3 (09:45→17:27)
[2020-10-06] MEDS: INSULIN LISPRO PROTAMINE SUBCUT SCH ×3 (09:45→17:27)
[2020-10-06] MEDS: LACTATED RINGERS 1,000 ML IV SCH (09:50)
[2020-10-06] MEDS ORDERED: FUROSEMIDE 40 MG/4 ML VIAL IV ONE (13:14)
[2020-10-06] MEDS ORDERED: propofoL 200 MG/20 ML VIAL IV ONE (14:49)
[2020-10-06] MEDS ORDERED: ETOMIDATE 20 MG/10 ML VIAL IV ONE (14:49)
[2020-10-06] MEDS ORDERED: LIDOCAINE 2% 5 ML VIAL ONE (14:49)
[2020-10-07] MEDS: SODIUM CHLORIDE 0.9% 1,000 ML IV SCH ×3 (03:23→15:01)
[2020-10-07 06:09] LABS: Calcium 8.4 MG/DL (8.5-10.1); Osmolality,Calculated 288.8 MOS/KG (273-304); Potassium 3.9 MMOL/L (3.5-5.1)
[2020-10-07 08:11] LABS: Basophils % 0.2 % (0.0-0.8); Eosinophils # 0.2 10*3/uL (0.0-0.87); Eosinophils % 3.2 % (0.00-10.9); Hematocrit 26.5 VOL% (35.7-47.0); Immature Granulocytes % 0.2 %; Immature Granulocytes Absolute 0.01 #; Lymphocytes # 2.1 10*3/uL (1.4-4.0); Lymphocytes % 34.3 % (21.3-54.2); Mean Corpuscular Volume 90.8 FL (87-102); Mean Platelet Volume 11.5 FL (9.6-12.0); Monocytes % 7.7 % (1.7-12.7); Neutrophils % 54.4 % (38.7-73.9); Platelet Count 107 T/CUMM (130-400); Red Blood Count 2.92 MC/CUMM (3.8-5.5)
[2020-10-07] MEDS: LACTATED RINGERS 1,000 ML IV SCH (09:23)
[2020-10-07] MEDS: INSULIN LISPRO 100 UNIT/ML SUBCUT SCH ×4 (09:32→23:08)
[2020-10-07] MEDS: GABAPENTIN 300 MG CAPSULE PO SCH ×4 (09:55→20:31)
[2020-10-07] MEDS: MAGNESIUM CHLORIDE 64 MG TABLET PO SCH ×2 (09:55→20:31)
[2020-10-07] MEDS: ASPIRIN EC 81 MG TABLET PO SCH (09:56)
[2020-10-07] MEDS: LISPRO SUBCUT SCH ×3 (09:56→17:05)
[2020-10-07] MEDS: LOSARTAN 50 MG TABLET PO SCH (09:56)
[2020-10-07] MEDS: PANTOPRAZOLE 40 MG TABLET PO SCH (09:56)
[2020-10-07] MEDS: INSULIN LISPRO PROTAMINE SUBCUT SCH ×3 (09:56→17:05)
[2020-10-07] MEDS: DOCUSATE SODIUM 100 MG CAPSULE PO SCH ×2 (09:56→20:31)
[2020-10-07] MEDS: diphenhydrAMINE CAP 25 MG CAPSULE PO PRN (13:55)
[2020-10-08] MEDS: SODIUM CHLORIDE 0.9% 1,000 ML IV SCH (03:03)
[2020-10-08 06:00] LABS: Basophils % 0.3 % (0.0-0.8); Eosinophils # 0.2 10*3/uL (0.0-0.87); Hematocrit 25.8 VOL% (35.7-47.0); Hemoglobin 8.6 GM/DL (12.0-16.0); Immature Granulocytes % 0.3 %; Immature Granulocytes Absolute 0.02 #; Lymphocytes # 2.3 10*3/uL (1.4-4.0); Lymphocytes % 37.2 % (21.3-54.2); Mean Corpuscular HGB Conc 33.3 GM/DL (32-36); Mean Corpuscular Volume 90.5 FL (87-102); Mean Platelet Volume 10.8 FL (9.6-12.0); Monocytes % 8.5 % (1.7-12.7); Neutrophils % 50.7 % (38.7-73.9); Platelet Count 108 T/CUMM (130-400); Red Blood Count 2.85 MC/CUMM (3.8-5.5); Red Cell Distribution Width 15.2 % (9.3-17.3); White Blood Count 6.1 T/CUMM (4-12)
[2020-10-08 06:30] LABS: Calcium 8.7 MG/DL (8.5-10.1); Osmolality,Calculated 280.4 MOS/KG (273-304)
[2020-10-08 06:31] LABS: Anisocytosis 2+; Burr Cells Few; Platelet Estimate Adequate
[2020-10-08] MEDS: MAGNESIUM CHLORIDE 64 MG TABLET PO SCH ×2 (09:55→22:02)
[2020-10-08] MEDS: ACETAMINOPHEN 325 MG TABLET PO PRN (09:57)
[2020-10-08] MEDS: DOCUSATE SODIUM 100 MG CAPSULE PO SCH ×2 (09:57→22:01)
[2020-10-08] MEDS: GABAPENTIN 300 MG CAPSULE PO SCH ×4 (09:57→22:02)
[2020-10-08] MEDS: ASPIRIN EC 81 MG TABLET PO SCH (09:58)
[2020-10-08] MEDS: PANTOPRAZOLE 40 MG TABLET PO SCH (09:58)
[2020-10-08] MEDS: LOSARTAN 50 MG TABLET PO SCH (09:58)
[2020-10-08] MEDS: INSULIN LISPRO 100 UNIT/ML SUBCUT SCH ×4 (10:01→22:01)
[2020-10-08] MEDS: LISPRO SUBCUT SCH ×3 (10:30→16:47)
[2020-10-08] MEDS: INSULIN LISPRO PROTAMINE SUBCUT SCH ×3 (10:30→16:47)
[2020-10-08] MEDS: LACTATED RINGERS 1,000 ML IV SCH (12:24)
[2020-10-08] MEDS: diphenhydrAMINE CAP 25 MG CAPSULE PO PRN (12:55)
[2020-10-08] MEDS ORDERED: MAGNESIUM HYDROXIDE SUSP 30 ML UDCUP PO ONE (13:09)
[2020-10-08 18:23] LABS: Hematocrit 26.5 VOL% (35.7-47.0); Hemoglobin 8.7 GM/DL (12.0-16.0)
[2020-10-09 05:38] LABS: Basophils % 0.1 % (0.0-0.8); Eosinophils # 0.2 10*3/uL (0.0-0.87); Eosinophils % 2.5 % (0.00-10.9); Hematocrit 21.5 VOL% (35.7-47.0); Immature Granulocytes % 0.3 %; Immature Granulocytes Absolute 0.02 #; Mean Corpuscular HGB Conc 32.6 GM/DL (32-36); Mean Corpuscular Volume 94.3 FL (87-102); Mean Platelet Volume 10.9 FL (9.6-12.0); Monocytes % 7.7 % (1.7-12.7); Neutrophils % 59.4 % (38.7-73.9); Platelet Count 127 T/CUMM (130-400); Red Blood Count 2.28 MC/CUMM (3.8-5.5); Red Cell Distribution Width 15.3 % (9.3-17.3); White Blood Count 6.7 T/CUMM (4-12)
[2020-10-09 06:05] LABS: Calcium 8.6 MG/DL (8.5-10.1); Osmolality,Calculated 288.1 MOS/KG (273-304); Potassium 4.4 MMOL/L (3.5-5.1)
[2020-10-09 08:13] LABS: Eosinophils 2 % (0-10); Lymphocytes 26 % (20-55); Platelet Estimate Decreased; Segmented Neutrophils 63 % (50-85); Total Cells Counted 100
[2020-10-09] MEDS: INSULIN LISPRO 100 UNIT/ML SUBCUT SCH ×4 (08:21→22:43)
[2020-10-09] MEDS: INSULIN LISPRO PROTAMINE SUBCUT SCH ×3 (08:25→16:09)
[2020-10-09] MEDS: MAGNESIUM CHLORIDE 64 MG TABLET PO SCH ×2 (08:25→20:02)
[2020-10-09] MEDS: DOCUSATE SODIUM 100 MG CAPSULE PO SCH ×2 (08:25→22:42)
[2020-10-09] MEDS: LISPRO SUBCUT SCH ×3 (08:25→16:09)
[2020-10-09] MEDS: GABAPENTIN 300 MG CAPSULE PO SCH ×4 (08:26→20:02)
[2020-10-09] MEDS: ASPIRIN EC 81 MG TABLET PO SCH (08:26)
[2020-10-09] MEDS: PANTOPRAZOLE 40 MG TABLET PO SCH (08:26)
[2020-10-09] MEDS: LOSARTAN 50 MG TABLET PO SCH (08:26)
[2020-10-09] MEDS: LACTATED RINGERS 1,000 ML IV SCH (10:56)
[2020-10-09] MEDS ORDERED: SODIUM CHLORIDE 0.9% 1,000 ML IV PRN (12:46)
[2020-10-09] MEDS ORDERED: FUROSEMIDE 20 MG/2 ML VIAL IV ONE ×2 (12:47→21:30)
[2020-10-09] MEDS: ACETAMINOPHEN 325 MG TABLET PO PRN (16:09)
[2020-10-09] MEDS ORDERED: MAGNESIUM SULF RIDER 2 GM in PREMIX 1 EACH IV ONE ×2 (17:43→21:00)
[2020-10-10 06:14] LABS: Basophils % 0.1 % (0.0-0.8); Eosinophils # 0.2 10*3/uL (0.0-0.87); Eosinophils % 1.9 % (0.00-10.9); Hematocrit 27.7 VOL% (35.7-47.0); Hemoglobin 9.3 GM/DL (12.0-16.0); Immature Granulocytes % 0.3 %; Immature Granulocytes Absolute 0.02 #; Lymphocytes # 1.9 10*3/uL (1.4-4.0); Lymphocytes % 24.2 % (21.3-54.2); Mean Corpuscular HGB Conc 33.6 GM/DL (32-36); Mean Corpuscular Volume 89.4 FL (87-102); Mean Platelet Volume 10.1 FL (9.6-12.0); Monocytes % 11.1 % (1.7-12.7); Neutrophils % 62.4 % (38.7-73.9); Platelet Count 109 T/CUMM (130-400); Red Cell Distribution Width 14.5 % (9.3-17.3); White Blood Count 7.9 T/CUMM (4-12)
[2020-10-10 06:47] LABS: Calcium 8.8 MG/DL (8.5-10.1); Osmolality,Calculated 285.1 MOS/KG (273-304); Potassium 3.9 MMOL/L (3.5-5.1)
[2020-10-10] MEDS: MAGNESIUM CHLORIDE 64 MG TABLET PO SCH ×2 (09:19→21:30)
[2020-10-10] MEDS: PANTOPRAZOLE 40 MG TABLET PO SCH (09:19)
[2020-10-10] MEDS: GABAPENTIN 300 MG CAPSULE PO SCH ×4 (09:19→21:30)
[2020-10-10] MEDS: ASPIRIN EC 81 MG TABLET PO SCH (09:19)
[2020-10-10] MEDS: DOCUSATE SODIUM 100 MG CAPSULE PO SCH ×2 (09:19→21:29)
[2020-10-10] MEDS: LOSARTAN 50 MG TABLET PO SCH (09:20)
[2020-10-10] MEDS: diphenhydrAMINE CAP 25 MG CAPSULE PO PRN ×2 (09:22→18:07)
[2020-10-10] MEDS: INSULIN LISPRO 100 UNIT/ML SUBCUT SCH ×4 (09:24→21:29)
[2020-10-10] MEDS: INSULIN LISPRO PROTAMINE SUBCUT SCH ×3 (09:25→16:39)
[2020-10-10] MEDS: LISPRO SUBCUT SCH ×3 (09:25→16:39)
[2020-10-11 06:12] LABS: Basophils % 0.1 % (0.0-0.8); Eosinophils # 0.2 10*3/uL (0.0-0.87); Hematocrit 27.6 VOL% (35.7-47.0); Hemoglobin 9.3 GM/DL (12.0-16.0); Immature Granulocytes % 0.1 %; Immature Granulocytes Absolute 0.01 #; Lymphocytes # 1.8 10*3/uL (1.4-4.0); Lymphocytes % 22.8 % (21.3-54.2); Mean Corpuscular HGB Conc 33.7 GM/DL (32-36); Mean Corpuscular Volume 90.2 FL (87-102); Mean Platelet Volume 11.5 FL (9.6-12.0); Monocytes % 11.4 % (1.7-12.7); Neutrophils % 63.6 % (38.7-73.9); Platelet Count 128 T/CUMM (130-400); Red Blood Count 3.06 MC/CUMM (3.8-5.5); Red Cell Distribution Width 14.5 % (9.3-17.3); White Blood Count 7.8 T/CUMM (4-12)
[2020-10-11 06:43] LABS: Calcium 8.7 MG/DL (8.5-10.1); Osmolality,Calculated 278.7 MOS/KG (273-304); Potassium 4.4 MMOL/L (3.5-5.1)
[2020-10-11] MEDS: ERGOCALCIFEROL 50,000 UNIT CAPSULE PO SCH (09:07)
[2020-10-11] MEDS: MAGNESIUM HYDROXIDE SUSP 30 ML UDCUP PO PRN (09:07)
[2020-10-11] MEDS: GABAPENTIN 300 MG CAPSULE PO SCH ×4 (09:08→22:13)
[2020-10-11] MEDS: DOCUSATE SODIUM 100 MG CAPSULE PO SCH ×2 (09:08→22:13)
[2020-10-11] MEDS: MAGNESIUM CHLORIDE 64 MG TABLET PO SCH ×2 (09:08→22:14)
[2020-10-11] MEDS: PANTOPRAZOLE 40 MG TABLET PO SCH (09:09)
[2020-10-11] MEDS: LOSARTAN 50 MG TABLET PO SCH (09:09)
[2020-10-11] MEDS: ASPIRIN EC 81 MG TABLET PO SCH (09:09)
[2020-10-11] MEDS: ACETAMINOPHEN 325 MG TABLET PO PRN (09:09)
[2020-10-11] MEDS: INSULIN LISPRO 100 UNIT/ML SUBCUT SCH ×4 (09:10→22:30)
[2020-10-11] MEDS: LISPRO SUBCUT SCH ×3 (09:10→16:29)
[2020-10-11] MEDS: INSULIN LISPRO PROTAMINE SUBCUT SCH ×3 (09:10→16:29)
[2020-10-11] MEDS: diphenhydrAMINE CAP 25 MG CAPSULE PO PRN (12:27)
[2020-10-12 05:56] LABS: Basophils % 0.1 % (0.0-0.8); Eosinophils # 0.1 10*3/uL (0.0-0.87); Eosinophils % 1.8 % (0.00-10.9); Hematocrit 27.4 VOL% (35.7-47.0); Hemoglobin 8.9 GM/DL (12.0-16.0); Immature Granulocytes % 0.3 %; Immature Granulocytes Absolute 0.02 #; Lymphocytes # 1.7 10*3/uL (1.4-4.0); Lymphocytes % 25.3 % (21.3-54.2); Mean Corpuscular HGB Conc 32.5 GM/DL (32-36); Mean Corpuscular Volume 92.9 FL (87-102); Mean Platelet Volume 10.6 FL (9.6-12.0); Monocytes % 11.2 % (1.7-12.7); Neutrophils % 61.3 % (38.7-73.9); Platelet Count 135 T/CUMM (130-400); Red Blood Count 2.95 MC/CUMM (3.8-5.5); Red Cell Distribution Width 14.3 % (9.3-17.3); White Blood Count 6.7 T/CUMM (4-12)
[2020-10-12 06:19] LABS: Eosinophils 1 % (0-10); Hypochromasia 1+; Lymphocytes 21 % (20-55); Microcytosis 1+; Platelet Estimate Normal; Segmented Neutrophils 72 % (50-85); Total Cells Counted 100
[2020-10-12 06:32] LABS: Calcium 8.5 MG/DL (8.5-10.1); Osmolality,Calculated 280.5 MOS/KG (273-304); Potassium 4.3 MMOL/L (3.5-5.1)
[2020-10-12] MEDS: ASPIRIN EC 81 MG TABLET PO SCH (09:04)
[2020-10-12] MEDS: INSULIN LISPRO PROTAMINE SUBCUT SCH ×3 (09:04→17:33)
[2020-10-12] MEDS: MAGNESIUM CHLORIDE 64 MG TABLET PO SCH ×2 (09:04→21:45)
[2020-10-12] MEDS: LISPRO SUBCUT SCH ×3 (09:04→17:33)
[2020-10-12] MEDS: INSULIN LISPRO 100 UNIT/ML SUBCUT SCH ×4 (09:04→21:46)
[2020-10-12] MEDS: DOCUSATE SODIUM 100 MG CAPSULE PO SCH ×3 (09:04→21:46)
[2020-10-12] MEDS: PANTOPRAZOLE 40 MG TABLET PO SCH (09:05)
[2020-10-12] MEDS: GABAPENTIN 300 MG CAPSULE PO SCH ×4 (09:05→21:45)
[2020-10-12] MEDS: LOSARTAN 50 MG TABLET PO SCH (09:05)
[2020-10-12] MEDS: diphenhydrAMINE CAP 25 MG CAPSULE PO PRN (11:08)
[2020-10-12 12:13] LABS: Hematocrit 30.9 VOL% (35.7-47.0); Hemoglobin 10.4 GM/DL (12.0-16.0)
[2020-10-13 04:34] LABS: Basophils % 0.2 % (0.0-0.8); Eosinophils # 0.2 10*3/uL (0.0-0.87); Eosinophils % 3.1 % (0.00-10.9); Hematocrit 26.2 VOL% (35.7-47.0); Hemoglobin 8.5 GM/DL (12.0-16.0); Immature Granulocytes % 0.2 %; Immature Granulocytes Absolute 0.01 #; Lymphocytes # 1.7 10*3/uL (1.4-4.0); Lymphocytes % 27.8 % (21.3-54.2); Mean Corpuscular HGB Conc 32.4 GM/DL (32-36); Mean Corpuscular Volume 92.9 FL (87-102); Mean Platelet Volume 9.8 FL (9.6-12.0); Monocytes % 12.3 % (1.7-12.7); Neutrophils % 56.4 % (38.7-73.9); Platelet Count 136 T/CUMM (130-400); Red Blood Count 2.82 MC/CUMM (3.8-5.5); Red Cell Distribution Width 14.1 % (9.3-17.3); White Blood Count 6.1 T/CUMM (4-12)
[2020-10-13 04:53] LABS: Calcium 8.8 MG/DL (8.5-10.1); Osmolality,Calculated 279.5 MOS/KG (273-304); Potassium 4.1 MMOL/L (3.5-5.1)
[2020-10-13 05:36] LABS: Band Neutrophils 6 % (0-10); Eosinophils 3 % (0-10); Lymphocytes 20 % (20-55); Segmented Neutrophils 60 % (50-85); Total Cells Counted 100
[2020-10-13 05:37] LABS: Anisocytosis 1+; Macrocytosis Slight; Platelet Estimate Adequate
[2020-10-13] MEDS: MAGNESIUM CHLORIDE 64 MG TABLET PO SCH ×2 (08:38→20:52)
[2020-10-13] MEDS: ASPIRIN EC 81 MG TABLET PO SCH (08:38)
[2020-10-13] MEDS: PANTOPRAZOLE 40 MG TABLET PO SCH (08:38)
[2020-10-13] MEDS: GABAPENTIN 300 MG CAPSULE PO SCH ×4 (08:39→20:53)
[2020-10-13] MEDS: INSULIN LISPRO 100 UNIT/ML SUBCUT SCH ×4 (08:40→20:55)
[2020-10-13] MEDS: LOSARTAN 50 MG TABLET PO SCH (08:40)
[2020-10-13] MEDS: DOCUSATE SODIUM 100 MG CAPSULE PO SCH ×2 (08:43→20:55)
[2020-10-13] MEDS: INSULIN LISPRO PROTAMINE SUBCUT SCH ×3 (09:25→17:04)
[2020-10-13] MEDS: LISPRO SUBCUT SCH ×3 (09:25→17:04)
[2020-10-13] MEDS ORDERED: POLYETHYLENE GLYCOL POWDER 17 GM PACK PO SCH (09:30)
[2020-10-13] MEDS: diphenhydrAMINE CAP 25 MG CAPSULE PO PRN (10:46)
[2020-10-13] MEDS ORDERED: POLYETHYLENE GLYCOL POWDER 17 GM PACK PO ONE (11:00)
[2020-10-14 06:26] LABS: Osmolality,Calculated 283.5 MOS/KG (273-304); Potassium 4.8 MMOL/L (3.5-5.1)
[2020-10-14 08:23] LABS: Basophils % 0.2 % (0.0-0.8); Eosinophils # 0.2 10*3/uL (0.0-0.87); Eosinophils % 3.7 % (0.00-10.9); Hematocrit 27.5 VOL% (35.7-47.0); Hemoglobin 9.1 GM/DL (12.0-16.0); Immature Granulocytes % 0.2 %; Immature Granulocytes Absolute 0.01 #; Lymphocytes # 1.5 10*3/uL (1.4-4.0); Mean Corpuscular HGB Conc 33.1 GM/DL (32-36); Mean Corpuscular Volume 90.8 FL (87-102); Mean Platelet Volume 10.1 FL (9.6-12.0); Monocytes % 11.6 % (1.7-12.7); Neutrophils % 56.3 % (38.7-73.9); Platelet Count 157 T/CUMM (130-400); Red Blood Count 3.03 MC/CUMM (3.8-5.5); Red Cell Distribution Width 13.9 % (9.3-17.3); White Blood Count 5.4 T/CUMM (4-12)
[2020-10-14] MEDS: INSULIN LISPRO 100 UNIT/ML SUBCUT SCH ×4 (08:25→22:00)
[2020-10-14] MEDS: LISPRO SUBCUT SCH ×3 (09:04→16:49)
[2020-10-14] MEDS: INSULIN LISPRO PROTAMINE SUBCUT SCH ×3 (09:04→16:49)
[2020-10-14] MEDS: MAGNESIUM CHLORIDE 64 MG TABLET PO SCH ×2 (09:05→21:31)
[2020-10-14] MEDS: PANTOPRAZOLE 40 MG TABLET PO SCH (09:05)
[2020-10-14] MEDS: GABAPENTIN 300 MG CAPSULE PO SCH ×4 (09:05→21:31)
[2020-10-14] MEDS: LOSARTAN 50 MG TABLET PO SCH (09:05)
[2020-10-14] MEDS: ASPIRIN EC 81 MG TABLET PO SCH (09:06)
[2020-10-14] MEDS: DOCUSATE SODIUM 100 MG CAPSULE PO SCH ×2 (09:07→22:00)
[2020-10-14] MEDS: MAGNESIUM HYDROXIDE SUSP 30 ML UDCUP PO PRN (09:10)
[2020-10-15 00:52] LABS: Basophils % 0.2 % (0.0-0.8); Eosinophils # 0.2 10*3/uL (0.0-0.87); Eosinophils % 2.6 % (0.00-10.9); Hematocrit 24.8 VOL% (35.7-47.0); Hemoglobin 8.1 GM/DL (12.0-16.0); Immature Granulocytes % 0.2 %; Immature Granulocytes Absolute 0.01 #; Lymphocytes # 1.5 10*3/uL (1.4-4.0); Lymphocytes % 24.2 % (21.3-54.2); Mean Corpuscular HGB Conc 32.7 GM/DL (32-36); Mean Corpuscular Volume 93.6 FL (87-102); Mean Platelet Volume 10.4 FL (9.6-12.0); Monocytes % 8.7 % (1.7-12.7); Neutrophils % 64.1 % (38.7-73.9); Platelet Count 163 T/CUMM (130-400); Red Blood Count 2.65 MC/CUMM (3.8-5.5); White Blood Count 6.1 T/CUMM (4-12)
[2020-10-15 01:08] LABS: Calcium 8.6 MG/DL (8.5-10.1); Osmolality,Calculated 283.8 MOS/KG (273-304)
[2020-10-15 01:09] LABS: Potassium 4.3 MMOL/L (3.5-5.1)
[2020-10-15 01:49] LABS: Hypochromasia 1+; Platelet Estimate Normal
[2020-10-15] MEDS ORDERED: SODIUM CHLORIDE 0.9% 1,000 ML IV PRN (01:56)
[2020-10-15] MEDS: GABAPENTIN 300 MG CAPSULE PO SCH ×4 (08:21→20:51)
[2020-10-15] MEDS: MAGNESIUM CHLORIDE 64 MG TABLET PO SCH ×2 (08:21→20:50)
[2020-10-15] MEDS: PANTOPRAZOLE 40 MG TABLET PO SCH (08:22)
[2020-10-15] MEDS: ASPIRIN EC 81 MG TABLET PO SCH (08:22)
[2020-10-15] MEDS: LOSARTAN 50 MG TABLET PO SCH (08:22)
[2020-10-15] MEDS: DOCUSATE SODIUM 100 MG CAPSULE PO SCH ×2 (08:34→20:53)
[2020-10-15] MEDS: INSULIN LISPRO 100 UNIT/ML SUBCUT SCH ×4 (08:57→20:54)
[2020-10-15] MEDS: INSULIN LISPRO PROTAMINE SUBCUT SCH ×3 (08:57→18:32)
[2020-10-15] MEDS: LISPRO SUBCUT SCH ×3 (08:57→18:32)
[2020-10-15] MEDS: BISACODYL 5 MG TABLET PO SCH ×2 (15:49→18:32)
[2020-10-15] MEDS ORDERED: MAGNESIUM CITRATE 300 ML BOTTLE PO ONE (21:00)
[2020-10-16] MEDS: BISACODYL 5 MG TABLET PO SCH ×4 (00:31→17:59)
[2020-10-16 05:55] LABS: Basophils % 0.3 % (0.0-0.8); Eosinophils # 0.2 10*3/uL (0.0-0.87); Eosinophils % 3.3 % (0.00-10.9); Hematocrit 30.6 VOL% (35.7-47.0); Hemoglobin 9.8 GM/DL (12.0-16.0); Immature Granulocytes % 0.3 %; Immature Granulocytes Absolute 0.02 #; Lymphocytes # 1.6 10*3/uL (1.4-4.0); Lymphocytes % 26.7 % (21.3-54.2); Mean Corpuscular Volume 93.6 FL (87-102); Mean Platelet Volume 10.6 FL (9.6-12.0); Monocytes % 11.1 % (1.7-12.7); Neutrophils % 58.3 % (38.7-73.9); Platelet Count 176 T/CUMM (130-400); Red Blood Count 3.27 MC/CUMM (3.8-5.5); Red Cell Distribution Width 13.6 % (9.3-17.3)
[2020-10-16 06:17] LABS: Hypochromasia 1+; Microcytosis 1+; Platelet Estimate Adequate
[2020-10-16 06:51] LABS: Calcium 9.3 MG/DL (8.5-10.1); Osmolality,Calculated 279.7 MOS/KG (273-304); Potassium 4.2 MMOL/L (3.5-5.1)
[2020-10-16] MEDS: ASPIRIN EC 81 MG TABLET PO SCH (08:49)
[2020-10-16] MEDS: GABAPENTIN 300 MG CAPSULE PO SCH ×4 (08:49→20:18)
[2020-10-16] MEDS: MAGNESIUM CHLORIDE 64 MG TABLET PO SCH ×2 (08:50→20:18)
[2020-10-16] MEDS: LISPRO SUBCUT SCH ×3 (08:51→17:59)
[2020-10-16] MEDS: INSULIN LISPRO PROTAMINE SUBCUT SCH ×3 (08:51→17:59)
[2020-10-16] MEDS: PANTOPRAZOLE 40 MG TABLET PO SCH (09:24)
[2020-10-16] MEDS: INSULIN LISPRO 100 UNIT/ML SUBCUT SCH ×4 (09:28→20:19)
[2020-10-16] MEDS: LOSARTAN 50 MG TABLET PO SCH (09:28)
[2020-10-16] MEDS: DOCUSATE SODIUM 100 MG CAPSULE PO SCH ×2 (09:29→20:24)
[2020-10-16] MEDS: SODIUM CHLORIDE 0.9% 1,000 ML IV SCH (12:14)
[2020-10-16] MEDS: ONDANSETRON 4 MG/2 ML VIAL IV PRN (15:19)
[2020-10-16] MEDS ORDERED: POLYETHYLENE GLYCOL POWDER 255 GM BOTTLE PO ONE (18:00)
[2020-10-17] MEDS: SODIUM CHLORIDE 0.9% 1,000 ML IV SCH ×3 (00:32→17:16)
[2020-10-17] MEDS: BISACODYL 5 MG TABLET PO SCH (02:00)
[2020-10-17 04:57] LABS: Basophils % 0.2 % (0.0-0.8); Eosinophils # 0.2 10*3/uL (0.0-0.87); Eosinophils % 1.7 % (0.00-10.9); Hematocrit 35.3 VOL% (35.7-47.0); Hemoglobin 10.9 GM/DL (12.0-16.0); Immature Granulocytes % 0.4 %; Immature Granulocytes Absolute 0.04 #; Lymphocytes # 2.2 10*3/uL (1.4-4.0); Lymphocytes % 20.6 % (21.3-54.2); Mean Corpuscular HGB Conc 30.9 GM/DL (32-36); Mean Corpuscular Volume 99.7 FL (87-102); Mean Platelet Volume 10.1 FL (9.6-12.0); Monocytes % 7.8 % (1.7-12.7); Neutrophils % 69.3 % (38.7-73.9); Platelet Count 193 T/CUMM (130-400); Red Blood Count 3.54 MC/CUMM (3.8-5.5); Red Cell Distribution Width 13.8 % (9.3-17.3); White Blood Count 10.6 T/CUMM (4-12)
[2020-10-17 05:16] LABS: Calcium 8.6 MG/DL (8.5-10.1); Osmolality,Calculated 281.1 MOS/KG (273-304); Potassium 4.1 MMOL/L (3.5-5.1)
[2020-10-17] MEDS: INSULIN LISPRO 100 UNIT/ML SUBCUT SCH ×4 (08:39→23:22)
[2020-10-17] MEDS: INSULIN LISPRO PROTAMINE SUBCUT SCH ×3 (08:39→17:16)
[2020-10-17] MEDS: LISPRO SUBCUT SCH ×3 (08:39→17:16)
[2020-10-17 08:57] LABS: Hematocrit 28.1 VOL% (35.7-47.0); Hemoglobin 8.9 GM/DL (12.0-16.0)
[2020-10-17] MEDS: MAGNESIUM CHLORIDE 64 MG TABLET PO SCH ×2 (11:28→23:21)
[2020-10-17] MEDS: GABAPENTIN 300 MG CAPSULE PO SCH ×5 (11:28→23:21)
[2020-10-17] MEDS: DOCUSATE SODIUM 100 MG CAPSULE PO SCH ×2 (11:28→23:21)
[2020-10-17] MEDS ORDERED: LACTATED RINGERS 1,000 ML IV SCH (13:00)
[2020-10-17] MEDS ORDERED: LIDOCAINE 2% 5 ML VIAL ONE (14:34)
[2020-10-17] MEDS ORDERED: ESMOLOL 100 MG/10 ML VIAL IV ONE (14:34)
[2020-10-17] MEDS ORDERED: propofoL 200 MG/20 ML VIAL IV ONE (14:34)
[2020-10-17] MEDS ORDERED: PHENYLEPHRINE 1 MG/10 ML SYRINGE IV ONE ×2 (14:34→14:53)
[2020-10-17 16:56] LABS: Hematocrit 25.3 VOL% (35.7-47.0)
[2020-10-17] MEDS: PANTOPRAZOLE 40 MG TABLET PO SCH (17:16)
[2020-10-17] MEDS ORDERED: SODIUM CHLORIDE 0.9% 1,000 ML IV PRN (17:47)
[2020-10-18] MEDS: SODIUM CHLORIDE 0.9% 1,000 ML IV SCH ×2 (04:07→15:21)
[2020-10-18 07:41] LABS: Basophils % 0.3 % (0.0-0.8); Eosinophils # 0.2 10*3/uL (0.0-0.87); Eosinophils % 2.8 % (0.00-10.9); Hematocrit 29.7 VOL% (35.7-47.0); Hemoglobin 9.8 GM/DL (12.0-16.0); Immature Granulocytes % 0.4 %; Immature Granulocytes Absolute 0.03 #; Lymphocytes % 29.8 % (21.3-54.2); Mean Corpuscular Volume 92.8 FL (87-102); Mean Platelet Volume 10.1 FL (9.6-12.0); Monocytes % 8.9 % (1.7-12.7); Neutrophils % 57.8 % (38.7-73.9); Platelet Count 160 T/CUMM (130-400); Red Cell Distribution Width 13.3 % (9.3-17.3); White Blood Count 6.8 T/CUMM (4-12)
[2020-10-18] MEDS: INSULIN LISPRO 100 UNIT/ML SUBCUT SCH ×3 (08:00→16:31)
[2020-10-18] MEDS: LISPRO SUBCUT SCH ×3 (08:01→16:31)
[2020-10-18] MEDS: INSULIN LISPRO PROTAMINE SUBCUT SCH ×3 (08:01→16:31)
[2020-10-18 08:02] LABS: Calcium 8.5 MG/DL (8.5-10.1); Osmolality,Calculated 278.7 MOS/KG (273-304); Potassium 4.5 MMOL/L (3.5-5.1)
[2020-10-18] MEDS: MAGNESIUM CHLORIDE 64 MG TABLET PO SCH (08:02)
[2020-10-18] MEDS: PANTOPRAZOLE 40 MG TABLET PO SCH (08:02)
[2020-10-18] MEDS: GABAPENTIN 300 MG CAPSULE PO SCH ×4 (08:02→22:17)
[2020-10-18] MEDS: ERGOCALCIFEROL 50,000 UNIT CAPSULE PO SCH (08:02)
[2020-10-18] MEDS: DOCUSATE SODIUM 100 MG CAPSULE PO SCH (08:02)
[2020-10-18 08:04] LABS: Hypochromasia 1+; Lymphocytes 26 % (20-55); Microcytosis 1+; Platelet Estimate Adequate; Segmented Neutrophils 68 % (50-85); Total Cells Counted 100
[2020-10-18] MEDS ORDERED: ALVIMOPAN 12 MG CAPSULE PO ONE (09:00)
[2020-10-18 09:38] LABS: Hematocrit 25.6 VOL% (35.7-47.0); Hemoglobin 8.6 GM/DL (12.0-16.0)
[2020-10-18] MEDS ORDERED: SODIUM CHLORIDE 0.9% 1,000 ML IV PRN ×2 (09:43→10:33)
[2020-10-18] MEDS ORDERED: ERTAPENEM 1,000 MG in SODIUM CHLORIDE 0.9% 100 ML IV ONE (10:00)
[2020-10-18 10:33] LABS: INR 1.1; PT Patient Result 11.4 SECS (9.8-11.9)
[2020-10-18] MEDS ORDERED: IBUPROFEN 600 MG TABLET PO ONE (11:00)
[2020-10-18] MEDS ORDERED: GABAPENTIN 300 MG CAPSULE PO ONE (11:00)
[2020-10-18] MEDS ORDERED: LIDOCAINE 2% 5 ML VIAL ONE ×3 (13:00→15:13)
[2020-10-18] MEDS ORDERED: ROPIVACAINE 0.5% 30 ML VIAL ONE (13:00)
[2020-10-18] MEDS ORDERED: ROCURONIUM 50 MG/5 ML VIAL IV ONE ×2 (13:12→15:36)
[2020-10-18] MEDS ORDERED: MIDAZOLAM 2 MG/2 ML VIAL ONE (13:12)
[2020-10-18] MEDS ORDERED: ETOMIDATE 40 MG/20 ML VIAL IV ONE (13:12)
[2020-10-18] MEDS ORDERED: fentaNYL 100 MCG/2 ML VIAL ONE ×2 (13:12→17:19)
[2020-10-18] MEDS ORDERED: SEVOFLURANE 1 UNIT/15 MINUTE INH ONE ×6 (13:13→17:12)
[2020-10-18] MEDS ORDERED: SODIUM CHLORIDE 0.9% 1,000 ML IV ONE ×2 (13:13→19:08)
[2020-10-18] MEDS ORDERED: ALBUMIN 5% 12.5 GM/250 ML VIAL IV ONE (14:35)
[2020-10-18] MEDS ORDERED: PHENYLEPHRINE DRIP 20 MG/250 ML PREMIX IV ONE (14:52)
[2020-10-18] MEDS ORDERED: LACTATED RINGERS 1,000 ML IV ONE (15:02)
[2020-10-18] MEDS ORDERED: SUGAMMADEX 200 MG/2 ML VIAL IV ONE (15:37)
[2020-10-18] MEDS ORDERED: ONDANSETRON 4 MG/2 ML VIAL ONE (15:38)
[2020-10-18] MEDS ORDERED: DEXAMETHASONE 4 MG/1 ML VIAL ONE ×2 (15:38)
[2020-10-18] MEDS ORDERED: INDOCYANINE GREEN 25 MG VIAL IV ONE (15:46)
[2020-10-18] MEDS ORDERED: TISSUE ADHESIVE 1 EACH APPLICATOR TOP ONE (17:14)
[2020-10-18] MEDS ORDERED: DEXTROSE 50% 25 GM/50 ML VIAL IV PRN (17:31)
[2020-10-18] MEDS ORDERED: GLUCAGON 1 MG VIAL IM PRN (17:31)
[2020-10-18 17:37] LABS: Bacteria,Urine Occasional /HPF (Few); Bilirubin,Urine Negative (Negative); Blood, Urine Small mg/dL (Negative); Glucose,Urine (UA) 150 mg/dL (Negative); Hyaline Casts,Urine 26 /LPF (0-3); Ketones,Urine Negative (Negative); Mucus,Urine Occasional /LPF (Occasional); Nitrite,Urine Negative (Negative); Protein,Urine Negative; RBC,Urine 6 /HPF (0-4); Squamous Epithelial Cell,Urine Few /HPF (0-10); Urine Appearance CLOUDY (Clear); Urine Color Yellow (Yellow); Urine Specific Gravity 1.016 (1.001-1.035); Urine Urobilinogen < 2.0 EU/DL (0.2-1.0); WBC,Urine 54 /HPF (0-6)
[2020-10-18 18:29] LABS: Calcium 7.9 MG/DL (8.5-10.1); Osmolality,Calculated 280.8 MOS/KG (273-304); Potassium 4.7 MMOL/L (3.5-5.1)
[2020-10-18 18:30] LABS: Basophils % 0.1 % (0.0-0.8); Eosinophils % 0.5 % (0.00-10.9); Hematocrit 34.1 VOL% (35.7-47.0); Hemoglobin 10.8 GM/DL (12.0-16.0); Immature Granulocytes % 0.4 %; Immature Granulocytes Absolute 0.03 #; Lymphocytes # 1.9 10*3/uL (1.4-4.0); Lymphocytes % 23.6 % (21.3-54.2); Mean Corpuscular HGB Conc 31.7 GM/DL (32-36); Mean Corpuscular Volume 91.9 FL (87-102); Mean Platelet Volume 10.6 FL (9.6-12.0); Monocytes % 4.1 % (1.7-12.7); Neutrophils % 71.3 % (38.7-73.9); Platelet Count 115 T/CUMM (130-400); Red Blood Count 3.71 MC/CUMM (3.8-5.5); White Blood Count 7.9 T/CUMM (4-12)
[2020-10-18] MEDS ORDERED: PHENYLEPHRINE DRIP 40 MG/250 ML PREMIX IV ONE (18:32)
[2020-10-18] MEDS: PHENYLEPHRINE DRIP 40 MG/250 ML PREMIX IV PRN (19:25)
[2020-10-18] MEDS ORDERED: SODIUM CHLORIDE 0.9% 2,000 ML IV ONE (19:45)
[2020-10-18] MEDS: KETOROLAC 15 MG/1 ML VIAL IV SCH (20:30)
[2020-10-18] MEDS: LACTATED RINGERS 1,000 ML IV SCH (21:02)
[2020-10-18 21:08] LABS: Eosinophils % 0.2 % (0.00-10.9); Hemoglobin 10.1 GM/DL (12.0-16.0); Immature Granulocytes % 0.2 %; Immature Granulocytes Absolute 0.01 #; Lymphocytes # 1.2 10*3/uL (1.4-4.0); Lymphocytes % 27.4 % (21.3-54.2); Mean Corpuscular HGB Conc 33.7 GM/DL (32-36); Mean Corpuscular Volume 89.6 FL (87-102); Mean Platelet Volume 10.1 FL (9.6-12.0); Monocytes % 3.9 % (1.7-12.7); Neutrophils % 68.3 % (38.7-73.9); Platelet Count 117 T/CUMM (130-400); Red Blood Count 3.35 MC/CUMM (3.8-5.5); Red Cell Distribution Width 14.9 % (9.3-17.3); White Blood Count 4.3 T/CUMM (4-12)
[2020-10-18 21:29] LABS: Anisocytosis Slight; Band Neutrophils 17 % (0-10); Lymphocytes 25 % (20-55); Metamyelocytes 4 %; Microcytosis Slight; Platelet Estimate Adequate; Segmented Neutrophils 50 % (50-85); Total Cells Counted 100
[2020-10-18] MEDS: ALVIMOPAN 12 MG CAPSULE PO SCH (22:17)
[2020-10-18] MEDS: INSULIN REGULAR 100 UNIT/ML SUBCUT SCH (22:18)
[2020-10-18] MEDS: HYDROmorphone 2 MG/1 ML VIAL IV PRN (22:30)
[2020-10-19 02:56] LABS: Basophils % 0.1 % (0.0-0.8); Eosinophils % 0.4 % (0.00-10.9); Hematocrit 28.6 VOL% (35.7-47.0); Hemoglobin 9.3 GM/DL (12.0-16.0); Immature Granulocytes % 0.4 %; Immature Granulocytes Absolute 0.03 #; Lymphocytes # 0.6 10*3/uL (1.4-4.0); Lymphocytes % 7.5 % (21.3-54.2); Mean Corpuscular HGB Conc 32.5 GM/DL (32-36); Mean Corpuscular Volume 90.2 FL (87-102); Mean Platelet Volume 10.3 FL (9.6-12.0); Monocytes % 3.7 % (1.7-12.7); Neutrophils % 87.9 % (38.7-73.9); Platelet Count 123 T/CUMM (130-400); Red Blood Count 3.17 MC/CUMM (3.8-5.5); Red Cell Distribution Width 14.9 % (9.3-17.3); White Blood Count 8.3 T/CUMM (4-12)
[2020-10-19 02:59] LABS: Calcium 7.6 MG/DL (8.5-10.1)
[2020-10-19] MEDS: KETOROLAC 15 MG/1 ML VIAL IV SCH ×4 (03:28→21:13)
[2020-10-19 03:39] LABS: Band Neutrophils 20 % (0-10); Lymphocytes 6 % (20-55); Metamyelocytes 2 %; Myelocytes 1 %; Segmented Neutrophils 68 % (50-85); Total Cells Counted 100
[2020-10-19 03:41] LABS: Hypochromasia 1+; Platelet Estimate Decreased
[2020-10-19] MEDS ORDERED: MAGNESIUM SULF RIDER 4 GM in PREMIX 1 EACH IV PRN (04:05)
[2020-10-19] MEDS ORDERED: MAGNESIUM SULF RIDER 50 ML IV ONE (04:09)
[2020-10-19] MEDS: MAGNESIUM SULF RIDER 2 GM in PREMIX 1 EACH IV PRN ×2 (04:14→05:47)
[2020-10-19] MEDS ORDERED: ALBUMIN 5% 25 GM in PREMIX 1 EACH IV ONE ×2 (05:00→19:20)
[2020-10-19] MEDS: LACTATED RINGERS 1,000 ML IV SCH (05:46)
[2020-10-19] MEDS: INSULIN REGULAR 100 UNIT/ML SUBCUT SCH ×4 (08:10→21:13)
[2020-10-19] MEDS ORDERED: ENOXAPARIN 40 MG/0.4 ML SYRINGE SUBCUT SCH (09:00)
[2020-10-19] MEDS: ALVIMOPAN 12 MG CAPSULE PO SCH (09:22)
[2020-10-19] MEDS: GABAPENTIN 300 MG CAPSULE PO SCH ×4 (09:22→21:13)
[2020-10-19] MEDS: cefTRIAXone 1,000 MG in SYRINGE 1 EACH IV SCH (11:19)
[2020-10-19] MEDS: PHENYLEPHRINE DRIP 40 MG/250 ML PREMIX IV PRN (11:51)
[2020-10-19 13:38] LABS: Hematocrit 27.3 VOL% (35.7-47.0)
[2020-10-20] MEDS: LACTATED RINGERS 1,000 ML IV SCH ×3 (00:30→20:40)
[2020-10-20] MEDS: KETOROLAC 15 MG/1 ML VIAL IV SCH ×4 (03:20→20:40)
[2020-10-20 04:35] LABS: Basophils % 0.1 % (0.0-0.8); Eosinophils # 0.1 10*3/uL (0.0-0.87); Eosinophils % 1.1 % (0.00-10.9); Hematocrit 22.7 VOL% (35.7-47.0); Hemoglobin 7.3 GM/DL (12.0-16.0); Immature Granulocytes % 0.9 %; Immature Granulocytes Absolute 0.11 #; Lymphocytes # 0.7 10*3/uL (1.4-4.0); Lymphocytes % 6.2 % (21.3-54.2); Mean Corpuscular HGB Conc 32.2 GM/DL (32-36); Mean Corpuscular Volume 91.5 FL (87-102); Mean Platelet Volume 10.6 FL (9.6-12.0); Monocytes % 3.8 % (1.7-12.7); Neutrophils % 87.9 % (38.7-73.9); Red Blood Count 2.48 MC/CUMM (3.8-5.5); Red Cell Distribution Width 15.5 % (9.3-17.3); White Blood Count 11.7 T/CUMM (4-12)
[2020-10-20 04:38] LABS: Platelet Count 81 T/CUMM (130-400)
[2020-10-20 04:44] LABS: Calcium 8.1 MG/DL (8.5-10.1); Potassium 3.5 MMOL/L (3.5-5.1)
[2020-10-20 04:56] LABS: Band Neutrophils 6 % (0-10); Hypochromasia 2+; Lymphocytes 4 % (20-55); Microcytosis 1+; Platelet Estimate Decreased; Segmented Neutrophils 89 % (50-85); Total Cells Counted 100
[2020-10-20] MEDS: INSULIN REGULAR 100 UNIT/ML SUBCUT SCH ×4 (08:00→20:40)
[2020-10-20] MEDS: GABAPENTIN 300 MG CAPSULE PO SCH ×4 (09:22→20:40)
[2020-10-20] MEDS: cefTRIAXone 1,000 MG in SYRINGE 1 EACH IV SCH (09:22)
[2020-10-20 11:42] LABS: Hematocrit 27.2 VOL% (35.7-47.0)
[2020-10-20 11:43] LABS: Hemoglobin 8.9 GM/DL (12.0-16.0)
[2020-10-20] MEDS ORDERED: ENOXAPARIN 40 MG/0.4 ML SYRINGE SUBCUT ONE (11:49)
[2020-10-20] MEDS ORDERED: FUROSEMIDE 20 MG/2 ML VIAL IV ONE (11:49)
[2020-10-20] MEDS ORDERED: HYDROmorphone 2 MG/1 ML VIAL IV ONE (15:52)
[2020-10-20] MEDS: COLESTIPOL 1 GM TABLET PO SCH (16:24)
[2020-10-21] MEDS: KETOROLAC 15 MG/1 ML VIAL IV SCH ×4 (05:00→21:04)
[2020-10-21 05:10] LABS: Basophils % 0.1 % (0.0-0.8); Eosinophils # 0.3 10*3/uL (0.0-0.87); Eosinophils % 1.8 % (0.00-10.9); Hematocrit 29.1 VOL% (35.7-47.0); Hemoglobin 9.6 GM/DL (12.0-16.0); Immature Granulocytes Absolute 0.16 #; Lymphocytes # 0.7 10*3/uL (1.4-4.0); Lymphocytes % 4.5 % (21.3-54.2); Mean Corpuscular Volume 91.2 FL (87-102); Mean Platelet Volume 10.6 FL (9.6-12.0); Monocytes % 2.8 % (1.7-12.7); Neutrophils % 89.8 % (38.7-73.9); Red Cell Distribution Width 14.9 % (9.3-17.3)
[2020-10-21 05:15] LABS: Calcium 9.1 MG/DL (8.5-10.1); Osmolality,Calculated 289.8 MOS/KG (273-304); Potassium 3.3 MMOL/L (3.5-5.1)
[2020-10-21 05:33] LABS: White Blood Count 15.7 T/CUMM (4-12)
[2020-10-21 05:34] LABS: Platelet Count 129 T/CUMM (130-400); Red Blood Count 3.19 MC/CUMM (3.8-5.5)
[2020-10-21] MEDS: MAGNESIUM SULF RIDER 2 GM in PREMIX 1 EACH IV PRN (05:47)
[2020-10-21 06:03] LABS: Band Neutrophils 1 % (0-10); Eosinophils 2 % (0-10); Lymphocytes 4 % (20-55); Segmented Neutrophils 93 % (50-85); Total Cells Counted 100
[2020-10-21 06:04] LABS: Hypochromasia 1+; Microcytosis 1+; Platelet Estimate Adequate
[2020-10-21] MEDS: LACTATED RINGERS 1,000 ML IV SCH ×3 (06:20→18:16)
[2020-10-21] MEDS: INSULIN REGULAR 100 UNIT/ML SUBCUT SCH ×4 (08:00→20:46)
[2020-10-21] MEDS: ONDANSETRON 4 MG/2 ML VIAL IV PRN ×2 (08:05→21:20)
[2020-10-21] MEDS: COLESTIPOL 1 GM TABLET PO SCH (08:07)
[2020-10-21] MEDS: GABAPENTIN 300 MG CAPSULE PO SCH ×4 (08:07→21:25)
[2020-10-21] MEDS: POTASSIUM CHLORIDE RIDER 20 MEQ in PREMIX 1 EACH IV PRN ×2 (08:08→10:23)
[2020-10-21] MEDS: ENOXAPARIN 40 MG/0.4 ML SYRINGE SUBCUT SCH (09:18)
[2020-10-21] MEDS: cefTRIAXone 1,000 MG in SYRINGE 1 EACH IV SCH (09:40)
[2020-10-21] MEDS: PANTOPRAZOLE 40 MG VIAL IV SCH (10:21)
[2020-10-21] MEDS: metroNIDAZOLE INJ 500 MG in PREMIX 1 EACH IV SCH ×2 (10:22→18:26)
[2020-10-21] MEDS: FAT EMULSION 20% 250 ML IV SCH (14:39)
[2020-10-21] MEDS: MULTIVITAMIN INJ 10 ML, TRACE ELEMENTS (5) 1 ML in AMINO ACIDS/DEXT/LYTES 5-15% 2,000 ML IV SCH ×2 (15:43→17:08)
[2020-10-21] MEDS ORDERED: DEXTROSE 10% 1,000 ML IV PRN (17:00)
[2020-10-22] MEDS: KETOROLAC 15 MG/1 ML VIAL IV SCH ×4 (03:38→22:48)
[2020-10-22] MEDS: metroNIDAZOLE INJ 500 MG in PREMIX 1 EACH IV SCH ×3 (03:43→17:38)
[2020-10-22] MEDS: LACTATED RINGERS 1,000 ML IV SCH ×2 (03:50→14:48)
[2020-10-22 06:16] LABS: Basophils % 0.1 % (0.0-0.8); Eosinophils # 0.4 10*3/uL (0.0-0.87); Eosinophils % 4.1 % (0.00-10.9); Hematocrit 26.3 VOL% (35.7-47.0); Hemoglobin 8.9 GM/DL (12.0-16.0); Immature Granulocytes % 0.6 %; Immature Granulocytes Absolute 0.05 #; Lymphocytes # 0.7 10*3/uL (1.4-4.0); Lymphocytes % 7.9 % (21.3-54.2); Mean Corpuscular HGB Conc 33.8 GM/DL (32-36); Mean Corpuscular Volume 89.5 FL (87-102); Mean Platelet Volume 10.3 FL (9.6-12.0); Monocytes % 4.4 % (1.7-12.7); Neutrophils % 82.9 % (38.7-73.9); Platelet Count 130 T/CUMM (130-400); Red Blood Count 2.94 MC/CUMM (3.8-5.5); Red Cell Distribution Width 15.1 % (9.3-17.3)
[2020-10-22 06:51] LABS: Calcium 8.8 MG/DL (8.5-10.1); Potassium 3.5 MMOL/L (3.5-5.1)
[2020-10-22] MEDS: INSULIN REGULAR 100 UNIT/ML SUBCUT SCH ×4 (07:54→22:38)
[2020-10-22] MEDS: COLESTIPOL 1 GM TABLET PO SCH (08:15)
[2020-10-22] MEDS: LOSARTAN 50 MG TABLET PO SCH (08:15)
[2020-10-22] MEDS: GABAPENTIN 300 MG CAPSULE PO SCH ×4 (08:15→22:42)
[2020-10-22] MEDS: PANTOPRAZOLE 40 MG VIAL IV SCH (08:16)
[2020-10-22] MEDS: ENOXAPARIN 40 MG/0.4 ML SYRINGE SUBCUT SCH (08:17)
[2020-10-22] MEDS: cefTRIAXone 1,000 MG in SYRINGE 1 EACH IV SCH (09:00)
[2020-10-22] MEDS: FAT EMULSION 20% 250 ML IV SCH (14:49)
[2020-10-22] MEDS: MULTIVITAMIN INJ 10 ML, TRACE ELEMENTS (5) 1 ML in AMINO ACIDS/DEXT/LYTES 5-15% 2,000 ML IV SCH (17:37)
[2020-10-23] MEDS: LACTATED RINGERS 1,000 ML IV SCH ×2 (00:52→15:32)
[2020-10-23] MEDS: KETOROLAC 15 MG/1 ML VIAL IV SCH ×3 (04:28→15:14)
[2020-10-23] MEDS: metroNIDAZOLE INJ 500 MG in PREMIX 1 EACH IV SCH ×3 (04:28→18:13)
[2020-10-23 06:19] LABS: Basophils % 0.2 % (0.0-0.8); Eosinophils # 0.3 10*3/uL (0.0-0.87); Eosinophils % 5.2 % (0.00-10.9); Hematocrit 25.9 VOL% (35.7-47.0); Hemoglobin 8.3 GM/DL (12.0-16.0); Immature Granulocytes % 0.3 %; Immature Granulocytes Absolute 0.02 #; Lymphocytes # 0.8 10*3/uL (1.4-4.0); Lymphocytes % 13.7 % (21.3-54.2); Mean Corpuscular Volume 94.2 FL (87-102); Mean Platelet Volume 10.7 FL (9.6-12.0); Monocytes % 7.9 % (1.7-12.7); Neutrophils % 72.7 % (38.7-73.9); Platelet Count 133 T/CUMM (130-400); Red Blood Count 2.75 MC/CUMM (3.8-5.5); Red Cell Distribution Width 15.2 % (9.3-17.3); White Blood Count 5.8 T/CUMM (4-12)
[2020-10-23 08:31] LABS: Anisocytosis 1+; Band Neutrophils 3 % (0-10); Eosinophils 3 % (0-10); Lymphocytes 14 % (20-55); Platelet Estimate Adequate; Segmented Neutrophils 72 % (50-85); Total Cells Counted 100
[2020-10-23] MEDS: INSULIN REGULAR 100 UNIT/ML SUBCUT SCH ×4 (09:50→21:24)
[2020-10-23] MEDS: COLESTIPOL 1 GM TABLET PO SCH (09:50)
[2020-10-23] MEDS: GABAPENTIN 300 MG CAPSULE PO SCH ×4 (09:50→20:43)
[2020-10-23] MEDS: ENOXAPARIN 40 MG/0.4 ML SYRINGE SUBCUT SCH (09:51)
[2020-10-23] MEDS: cefTRIAXone 1,000 MG in SYRINGE 1 EACH IV SCH (09:52)
[2020-10-23] MEDS: PANTOPRAZOLE 40 MG VIAL IV SCH (09:52)
[2020-10-23] MEDS: LOSARTAN 50 MG TABLET PO SCH (10:15)
[2020-10-23] MEDS: FAT EMULSION 20% 250 ML IV SCH (14:57)
[2020-10-23] MEDS: MULTIVITAMIN INJ 10 ML, TRACE ELEMENTS (5) 1 ML in AMINO ACIDS/DEXT/LYTES 5-15% 2,000 ML IV SCH (17:09)
[2020-10-24] MEDS: LACTATED RINGERS 1,000 ML IV SCH (01:40)
[2020-10-24] MEDS: metroNIDAZOLE INJ 500 MG in PREMIX 1 EACH IV SCH (02:44)
[2020-10-24 05:49] LABS: Basophils % 0.2 % (0.0-0.8); Eosinophils # 0.3 10*3/uL (0.0-0.87); Eosinophils % 5.2 % (0.00-10.9); Hematocrit 26.5 VOL% (35.7-47.0); Hemoglobin 8.3 GM/DL (12.0-16.0); Immature Granulocytes % 1.1 %; Immature Granulocytes Absolute 0.07 #; Lymphocytes % 15.7 % (21.3-54.2); Mean Corpuscular HGB Conc 31.3 GM/DL (32-36); Mean Platelet Volume 10.9 FL (9.6-12.0); Monocytes % 10.7 % (1.7-12.7); Neutrophils % 67.1 % (38.7-73.9); Platelet Count 148 T/CUMM (130-400); Red Blood Count 2.82 MC/CUMM (3.8-5.5); Red Cell Distribution Width 14.9 % (9.3-17.3); White Blood Count 6.2 T/CUMM (4-12)
[2020-10-24 06:06] LABS: Hypochromasia 1+
[2020-10-24 06:07] LABS: Calcium 8.7 MG/DL (8.5-10.1); Microcytosis 1+; Osmolality,Calculated 291.3 MOS/KG (273-304); Platelet Estimate Adequate; Potassium 3.4 MMOL/L (3.5-5.1)
[2020-10-24] MEDS: INSULIN REGULAR 100 UNIT/ML SUBCUT SCH ×4 (08:48→20:59)
[2020-10-24] MEDS: ENOXAPARIN 40 MG/0.4 ML SYRINGE SUBCUT SCH (08:48)
[2020-10-24] MEDS: PANTOPRAZOLE 40 MG VIAL IV SCH (08:48)
[2020-10-24] MEDS: MAGNESIUM SULF RIDER 2 GM in PREMIX 1 EACH IV PRN (08:49)
[2020-10-24] MEDS: GABAPENTIN 300 MG CAPSULE PO SCH ×4 (08:49→21:00)
[2020-10-24] MEDS: COLESTIPOL 1 GM TABLET PO SCH (08:49)
[2020-10-24] MEDS: LOSARTAN 50 MG TABLET PO SCH (08:49)
[2020-10-24] MEDS: cefTRIAXone 1,000 MG in SYRINGE 1 EACH IV SCH (09:45)
[2020-10-24] MEDS: POTASSIUM CHLORIDE RIDER 10 MEQ in PREMIX 1 EACH IV PRN ×3 (09:45→14:49)
[2020-10-24] MEDS: FLUCONAZOLE INJ 100 MG in IV BAG 1 EACH IV SCH (14:01)
[2020-10-24] MEDS: HYDROmorphone 2 MG/1 ML VIAL IV PRN (14:48)
[2020-10-24] MEDS: FAT EMULSION 20% 250 ML IV SCH (15:58)
[2020-10-24] MEDS: MULTIVITAMIN INJ 10 ML, TRACE ELEMENTS (5) 1 ML in AMINO ACIDS/DEXT/LYTES 5-15% 2,000 ML IV SCH (19:20)
[2020-10-25] MEDS: HYDROmorphone 2 MG/1 ML VIAL IV PRN (00:23)
[2020-10-25 06:21] LABS: Basophils % 0.1 % (0.0-0.8); Eosinophils # 0.3 10*3/uL (0.0-0.87); Eosinophils % 4.1 % (0.00-10.9); Hematocrit 26.6 VOL% (35.7-47.0); Hemoglobin 8.3 GM/DL (12.0-16.0); Immature Granulocytes % 1.6 %; Immature Granulocytes Absolute 0.13 #; Lymphocytes # 1.1 10*3/uL (1.4-4.0); Lymphocytes % 13.8 % (21.3-54.2); Mean Corpuscular HGB Conc 31.2 GM/DL (32-36); Mean Corpuscular Volume 93.7 FL (87-102); Mean Platelet Volume 11.3 FL (9.6-12.0); Monocytes % 9.1 % (1.7-12.7); Neutrophils % 71.3 % (38.7-73.9); Platelet Count 160 T/CUMM (130-400); Red Blood Count 2.84 MC/CUMM (3.8-5.5); Red Cell Distribution Width 14.9 % (9.3-17.3); White Blood Count 8.2 T/CUMM (4-12)
[2020-10-25 06:43] LABS: Calcium 8.2 MG/DL (8.5-10.1); Osmolality,Calculated 290.3 MOS/KG (273-304); Potassium 3.8 MMOL/L (3.5-5.1)
[2020-10-25 06:45] LABS: Eosinophils 4 % (0-10); Hypochromasia 1+; Lymphocytes 7 % (20-55); Microcytosis 1+; Platelet Estimate Adequate; Segmented Neutrophils 81 % (50-85); Total Cells Counted 100
[2020-10-25] MEDS: INSULIN REGULAR 100 UNIT/ML SUBCUT SCH ×4 (09:33→21:02)
[2020-10-25] MEDS: PANTOPRAZOLE 40 MG VIAL IV SCH (09:34)
[2020-10-25] MEDS: cefTRIAXone 1,000 MG in SYRINGE 1 EACH IV SCH (09:34)
[2020-10-25] MEDS: INSULIN GLARGINE 100 UNIT/ML SUBCUT SCH (09:34)
[2020-10-25] MEDS: ENOXAPARIN 40 MG/0.4 ML SYRINGE SUBCUT SCH (09:35)
[2020-10-25] MEDS: GABAPENTIN 300 MG CAPSULE PO SCH ×4 (09:35→21:01)
[2020-10-25] MEDS: LOSARTAN 50 MG TABLET PO SCH (09:35)
[2020-10-25] MEDS: COLESTIPOL 1 GM TABLET PO SCH (09:36)
[2020-10-25] MEDS: FLUCONAZOLE INJ 100 MG in IV BAG 1 EACH IV SCH (09:46)
[2020-10-25] MEDS: FAT EMULSION 20% 250 ML IV SCH (14:15)
[2020-10-25] MEDS: MAGNESIUM SULF RIDER 2 GM in PREMIX 1 EACH IV PRN (14:16)
[2020-10-25] MEDS: LACTATED RINGERS 1,000 ML IV SCH ×2 (16:32→16:33)
[2020-10-25] MEDS: MULTIVITAMIN INJ 10 ML, TRACE ELEMENTS (5) 1 ML in AMINO ACIDS/DEXT/LYTES 5-15% 2,000 ML IV SCH (17:09)
[2020-10-26] MEDS: INSULIN REGULAR 100 UNIT/ML SUBCUT SCH ×4 (09:53→19:59)
[2020-10-26] MEDS: LOSARTAN 50 MG TABLET PO SCH (09:54)
[2020-10-26] MEDS: GABAPENTIN 300 MG CAPSULE PO SCH ×4 (09:54→20:33)
[2020-10-26] MEDS: ENOXAPARIN 40 MG/0.4 ML SYRINGE SUBCUT SCH (09:54)
[2020-10-26] MEDS: INSULIN GLARGINE 100 UNIT/ML SUBCUT SCH (09:54)
[2020-10-26] MEDS: PANTOPRAZOLE 40 MG VIAL IV SCH (09:55)
[2020-10-26] MEDS: cefTRIAXone 1,000 MG in SYRINGE 1 EACH IV SCH (09:55)
[2020-10-26] MEDS: FLUCONAZOLE INJ 100 MG in IV BAG 1 EACH IV SCH (09:56)
[2020-10-26] MEDS: COLESTIPOL 1 GM TABLET PO SCH (10:08)
[2020-10-26] MEDS: INSULIN LISPRO PROTAMINE SUBCUT SCH ×2 (12:48→16:25)
[2020-10-26] MEDS: LISPRO SUBCUT SCH ×2 (12:48→16:25)
[2020-10-27 06:37] LABS: Basophils % 0.2 % (0.0-0.8); Eosinophils # 0.2 10*3/uL (0.0-0.87); Eosinophils % 3.3 % (0.00-10.9); Hematocrit 25.2 VOL% (35.7-47.0); Hemoglobin 8.1 GM/DL (12.0-16.0); Immature Granulocytes % 1.2 %; Immature Granulocytes Absolute 0.08 #; Lymphocytes # 1.2 10*3/uL (1.4-4.0); Lymphocytes % 17.8 % (21.3-54.2); Mean Corpuscular HGB Conc 32.1 GM/DL (32-36); Mean Corpuscular Volume 91.6 FL (87-102); Mean Platelet Volume 11.2 FL (9.6-12.0); Monocytes % 9.8 % (1.7-12.7); Neutrophils % 67.7 % (38.7-73.9); Platelet Count 195 T/CUMM (130-400); Red Blood Count 2.75 MC/CUMM (3.8-5.5); Red Cell Distribution Width 15.2 % (9.3-17.3); White Blood Count 6.6 T/CUMM (4-12)
[2020-10-27 06:54] LABS: Calcium 8.3 MG/DL (8.5-10.1); Osmolality,Calculated 286.3 MOS/KG (273-304); Potassium 3.9 MMOL/L (3.5-5.1)
[2020-10-27 07:03] LABS: Eosinophils 3 % (0-10); Hypochromasia 1+; Lymphocytes 14 % (20-55); Microcytosis 1+; Platelet Estimate Adequate; Segmented Neutrophils 76 % (50-85); Total Cells Counted 100
[2020-10-27] MEDS: FLUCONAZOLE INJ 100 MG in IV BAG 1 EACH IV SCH (09:07)
[2020-10-27] MEDS: GABAPENTIN 300 MG CAPSULE PO SCH ×2 (09:09→12:23)
[2020-10-27] MEDS: LOSARTAN 50 MG TABLET PO SCH (09:09)
[2020-10-27] MEDS: PANTOPRAZOLE 40 MG VIAL IV SCH (09:10)
[2020-10-27] MEDS: COLESTIPOL 1 GM TABLET PO SCH (09:10)
[2020-10-27] MEDS: ENOXAPARIN 40 MG/0.4 ML SYRINGE SUBCUT SCH (09:10)
[2020-10-27] MEDS: INSULIN GLARGINE 100 UNIT/ML SUBCUT SCH (09:11)
[2020-10-27] MEDS: LISPRO SUBCUT SCH ×2 (09:11→12:24)
[2020-10-27] MEDS: INSULIN LISPRO PROTAMINE SUBCUT SCH ×2 (09:11→12:24)
[2020-10-27] MEDS: INSULIN REGULAR 100 UNIT/ML SUBCUT SCH ×2 (10:11→14:06)
[2020-10-27 13:28] VITALS: BP 133/68
== END 2020-10-27 13:45 | disposition home health service (06) | DRG 329 ==
LOC: N.TELES 16:21 → SUATTDRO 16:21 → N.ICU 10-18 18:27 → N.TELES 10-22 09:27
PROVIDERS: ADMIT Internal Medicine; ATTEND Internal Medicine

== ENCOUNTER 2020-11-05 18:01 | Inpatient (IN) ==
[2020-11-05] MEDS ORDERED: ACETAMINOPHEN 325 MG TABLET PO PRN (18:56)
[2020-11-05] MEDS: LACTATED RINGERS 1,000 ML IV SCH (20:30)
[2020-11-05 23:42] LABS: Bacteria,Urine Occasional /HPF (Few); Bilirubin,Urine Negative (Negative); Blood, Urine Negative (Negative); Glucose,Urine (UA) Negative (Negative); Ketones,Urine 20 mg/dL (Negative); Mucus,Urine Occasional /LPF (Occasional); Nitrite,Urine Negative (Negative); Protein,Urine Negative; RBC,Urine <1 /HPF (0-4); Squamous Epithelial Cell,Urine Occasional /HPF (0-10); Urine Appearance CLEAR (Clear); Urine Color Yellow (Yellow); Urine Specific Gravity 1.012 (1.001-1.035); Urine Urobilinogen < 2.0 EU/DL (0.2-1.0); WBC,Urine <1 /HPF (0-6)
[2020-11-06] MEDS: LACTATED RINGERS 1,000 ML IV SCH ×3 (04:50→21:00)
[2020-11-06 05:53] LABS: Basophils % 0.2 % (0.0-0.8); Eosinophils # 0.3 10*3/uL (0.0-0.87); Eosinophils % 4.6 % (0.00-10.9); Hematocrit 31.2 VOL% (35.7-47.0); Hemoglobin 9.5 GM/DL (12.0-16.0); Immature Granulocytes % 1.3 %; Immature Granulocytes Absolute 0.07 #; Lymphocytes # 1.1 10*3/uL (1.4-4.0); Lymphocytes % 20.2 % (21.3-54.2); Mean Corpuscular HGB Conc 30.4 GM/DL (32-36); Mean Corpuscular Volume 95.4 FL (87-102); Mean Platelet Volume 10.7 FL (9.6-12.0); Monocytes % 12.9 % (1.7-12.7); Neutrophils % 60.8 % (38.7-73.9); Platelet Count 260 T/CUMM (130-400); Red Blood Count 3.27 MC/CUMM (3.8-5.5); Red Cell Distribution Width 15.4 % (9.3-17.3); White Blood Count 5.6 T/CUMM (4-12)
[2020-11-06 06:41] LABS: Albumin 2.7 G/DL (3.4-5.0); Bilirubin,Total 0.8 MG/DL (0.2-1.0); Calcium 9.2 MG/DL (8.5-10.1); Osmolality,Calculated 291.7 MOS/KG (273-304); Potassium 4.9 MMOL/L (3.5-5.1)
[2020-11-06] MEDS ORDERED: LOSARTAN 50 MG TABLET PO SCH (09:00)
[2020-11-06] MEDS ORDERED: PANTOPRAZOLE 40 MG TABLET PO SCH (09:00)
[2020-11-06] MEDS: ONDANSETRON 4 MG/2 ML VIAL IV PRN (10:20)
[2020-11-06] MEDS: GABAPENTIN 300 MG CAPSULE PO SCH ×3 (13:05→20:47)
[2020-11-06] MEDS: PANTOPRAZOLE 40 MG TABLET PO SCH (20:47)
[2020-11-06] MEDS: MAGNESIUM CHLORIDE 64 MG TABLET PO SCH (20:47)
[2020-11-06] MEDS: ENOXAPARIN 40 MG/0.4 ML SYRINGE SUBCUT SCH (20:48)
[2020-11-07] MEDS: LACTATED RINGERS 1,000 ML IV SCH ×2 (04:52→16:14)
[2020-11-07 06:01] LABS: Basophils % 0.2 % (0.0-0.8); Eosinophils # 0.3 10*3/uL (0.0-0.87); Eosinophils % 5.2 % (0.00-10.9); Hematocrit 31.1 VOL% (35.7-47.0); Hemoglobin 9.5 GM/DL (12.0-16.0); Immature Granulocytes % 0.3 %; Immature Granulocytes Absolute 0.02 #; Lymphocytes # 1.1 10*3/uL (1.4-4.0); Lymphocytes % 17.9 % (21.3-54.2); Mean Corpuscular HGB Conc 30.5 GM/DL (32-36); Mean Corpuscular Volume 94.5 FL (87-102); Mean Platelet Volume 10.6 FL (9.6-12.0); Monocytes % 8.9 % (1.7-12.7); Neutrophils % 67.5 % (38.7-73.9); Platelet Count 269 T/CUMM (130-400); Red Blood Count 3.29 MC/CUMM (3.8-5.5); Red Cell Distribution Width 15.3 % (9.3-17.3); White Blood Count 6.2 T/CUMM (4-12)
[2020-11-07 06:18] LABS: Calcium 9.2 MG/DL (8.5-10.1); Potassium 4.4 MMOL/L (3.5-5.1)
[2020-11-07] MEDS ORDERED: GLUCAGON 1 MG VIAL IM PRN (08:54)
[2020-11-07] MEDS ORDERED: DEXTROSE 50% 25 GM/50 ML VIAL IV PRN (08:54)
[2020-11-07] MEDS ORDERED: ERGOCALCIFEROL 50,000 UNIT CAPSULE PO SCH (09:00)
[2020-11-07] MEDS ORDERED: MAGNESIUM SULF RIDER 2 GM in PREMIX 1 EACH IV ONE (09:00)
[2020-11-07] MEDS: PANTOPRAZOLE 40 MG TABLET PO SCH ×2 (09:42→20:50)
[2020-11-07] MEDS: GABAPENTIN 300 MG CAPSULE PO SCH ×4 (09:42→20:51)
[2020-11-07] MEDS: COLESTIPOL 1 GM TABLET PO SCH (09:42)
[2020-11-07] MEDS: FLUCONAZOLE 100 MG TABLET PO SCH (09:42)
[2020-11-07] MEDS: MAGNESIUM CHLORIDE 64 MG TABLET PO SCH ×2 (09:43→20:51)
[2020-11-07] MEDS: NYSTATIN 500,000 UNIT/5 ML UDCUP SWISH/SWAL SCH ×4 (09:43→20:51)
[2020-11-07] MEDS: INSULIN LISPRO 100 UNIT/ML SUBCUT SCH ×3 (12:40→20:51)
[2020-11-07 16:25] LABS: Bacteria,Urine Occasional /HPF (Few); Bilirubin,Urine Negative (Negative); Blood, Urine Small mg/dL (Negative); Glucose,Urine (UA) Negative (Negative); Hyaline Casts,Urine 3 /LPF (0-3); Ketones,Urine Negative (Negative); Mucus,Urine Occasional /LPF (Occasional); Nitrite,Urine Negative (Negative); Protein,Urine Negative; RBC,Urine 2 /HPF (0-4); Squamous Epithelial Cell,Urine Occasional /HPF (0-10); Urine Appearance CLEAR (Clear); Urine Color Straw (Yellow); Urine Urobilinogen < 2.0 EU/DL (0.2-1.0)
[2020-11-07] MEDS: ENOXAPARIN 40 MG/0.4 ML SYRINGE SUBCUT SCH (20:51)
[2020-11-08] MEDS: LACTATED RINGERS 1,000 ML IV SCH ×3 (00:27→17:57)
[2020-11-08 06:03] LABS: Alanine Aminotransferase < 6 U/L (13-56); Albumin 1.4 G/DL (3.4-5.0); Alkaline Phosphatase 35 U/L (45-117); Aspartate Amino Transferase 10 U/L (0-37); Bilirubin,Total < 0.39 MG/DL (0.2-1.0); Blood Urea Nitrogen 6 MG/DL (7-18); Calcium 7.4 MG/DL (8.5-10.1); Carbon Dioxide 15 MMOL/L (21-32); Estimated Glom Filtration Rate 129 ML/MIN; Glucose 67 MG/DL (74-106); Osmolality,Calculated 278.1 MOS/KG (273-304); Potassium 4.1 MMOL/L (3.5-5.1); Sodium 142 MMOL/L (136-145); Total Protein 3.7 G/DL (6.4-8.2)
[2020-11-08] MEDS: INSULIN LISPRO 100 UNIT/ML SUBCUT SCH ×4 (07:30→21:11)
[2020-11-08 09:00] LABS: Basophils % 0.2 % (0.0-0.8); Eosinophils # 0.3 10*3/uL (0.0-0.87); Hematocrit 34.6 VOL% (35.7-47.0); Hemoglobin 11.1 GM/DL (12.0-16.0); Immature Granulocytes % 0.3 %; Immature Granulocytes Absolute 0.02 #; Lymphocytes # 1.5 10*3/uL (1.4-4.0); Lymphocytes % 22.4 % (21.3-54.2); Mean Corpuscular HGB Conc 32.1 GM/DL (32-36); Mean Corpuscular Volume 89.2 FL (87-102); Mean Platelet Volume 10.2 FL (9.6-12.0); Monocytes % 9.7 % (1.7-12.7); Neutrophils % 63.4 % (38.7-73.9); Platelet Count 270 T/CUMM (130-400); Red Blood Count 3.88 MC/CUMM (3.8-5.5); White Blood Count 6.6 T/CUMM (4-12)
[2020-11-08] MEDS: GABAPENTIN 300 MG CAPSULE PO SCH ×4 (09:00→21:12)
[2020-11-08] MEDS: NYSTATIN 500,000 UNIT/5 ML UDCUP SWISH/SWAL SCH ×4 (09:00→21:13)
[2020-11-08] MEDS ORDERED: GLUCAGON 1 MG VIAL IM PRN (11:55)
[2020-11-08] MEDS ORDERED: DEXTROSE 50% 25 GM/50 ML VIAL IV PRN (11:55)
[2020-11-08] MEDS: MAGNESIUM CHLORIDE 64 MG TABLET PO SCH ×2 (13:11→21:12)
[2020-11-08] MEDS: COLESTIPOL 1 GM TABLET PO SCH (13:11)
[2020-11-08] MEDS: FLUCONAZOLE 100 MG TABLET PO SCH (13:12)
[2020-11-08] MEDS: PANTOPRAZOLE 40 MG TABLET PO SCH ×2 (13:12→21:12)
[2020-11-08] MEDS: ENOXAPARIN 40 MG/0.4 ML SYRINGE SUBCUT SCH (21:13)
[2020-11-09] MEDS: LACTATED RINGERS 1,000 ML IV SCH ×3 (01:43→17:33)
[2020-11-09 07:17] LABS: Basophils % 0.2 % (0.0-0.8); Eosinophils # 0.3 10*3/uL (0.0-0.87); Eosinophils % 5.2 % (0.00-10.9); Hematocrit 27.4 VOL% (35.7-47.0); Immature Granulocytes % 0.4 %; Immature Granulocytes Absolute 0.02 #; Lymphocytes # 1.2 10*3/uL (1.4-4.0); Lymphocytes % 24.7 % (21.3-54.2); Mean Corpuscular HGB Conc 32.1 GM/DL (32-36); Mean Corpuscular Volume 89.8 FL (87-102); Mean Platelet Volume 10.4 FL (9.6-12.0); Monocytes % 11.4 % (1.7-12.7); Neutrophils % 58.1 % (38.7-73.9); Platelet Count 232 T/CUMM (130-400); Red Cell Distribution Width 15.1 % (9.3-17.3)
[2020-11-09 07:18] LABS: Hemoglobin 8.8 GM/DL (12.0-16.0); Red Blood Count 3.05 MC/CUMM (3.8-5.5)
[2020-11-09 07:29] LABS: Calcium 8.4 MG/DL (8.5-10.1); Osmolality,Calculated 279.3 MOS/KG (273-304); Potassium 3.5 MMOL/L (3.5-5.1)
[2020-11-09] MEDS: INSULIN LISPRO 100 UNIT/ML SUBCUT SCH ×4 (07:32→21:16)
[2020-11-09 07:55] LABS: Anisocytosis 1+; Band Neutrophils 3 % (0-10); Eosinophils 6 % (0-10); Lymphocytes 26 % (20-55); Macrocytosis Slight; Platelet Estimate Normal; Segmented Neutrophils 55 % (50-85); Total Cells Counted 100
[2020-11-09] MEDS: NYSTATIN 500,000 UNIT/5 ML UDCUP SWISH/SWAL SCH ×4 (10:00→21:18)
[2020-11-09] MEDS: PANTOPRAZOLE 40 MG TABLET PO SCH ×2 (10:00→21:17)
[2020-11-09] MEDS: GABAPENTIN 300 MG CAPSULE PO SCH ×4 (10:00→21:17)
[2020-11-09] MEDS: MAGNESIUM CHLORIDE 64 MG TABLET PO SCH ×2 (10:00→21:17)
[2020-11-09] MEDS: FLUCONAZOLE 100 MG TABLET PO SCH (10:00)
[2020-11-09] MEDS: COLESTIPOL 1 GM TABLET PO SCH (10:00)
[2020-11-09] MEDS: ONDANSETRON 4 MG/2 ML VIAL IV PRN (11:46)
[2020-11-09] MEDS ORDERED: MAGNESIUM SULF RIDER 4 GM in PREMIX 1 EACH IV PRN (12:47)
[2020-11-09] MEDS ORDERED: MAGNESIUM SULF RIDER 2 GM in PREMIX 1 EACH IV PRN (12:47)
[2020-11-09] MEDS ORDERED: POTASSIUM CHLORIDE 20 MEQ/15 ML UDCUP PER TUBE PRN (12:47)
[2020-11-09] MEDS: ASCORBIC ACID 500 MG TABLET PO SCH (21:17)
[2020-11-09] MEDS: ENOXAPARIN 40 MG/0.4 ML SYRINGE SUBCUT SCH (21:17)
[2020-11-10] MEDS: LACTATED RINGERS 1,000 ML IV SCH ×2 (02:22→13:25)
[2020-11-10 05:03] LABS: Basophils % 0.4 % (0.0-0.8); Eosinophils # 0.3 10*3/uL (0.0-0.87); Hematocrit 26.2 VOL% (35.7-47.0); Hemoglobin 8.5 GM/DL (12.0-16.0); Immature Granulocytes % 0.4 %; Immature Granulocytes Absolute 0.02 #; Lymphocytes # 1.2 10*3/uL (1.4-4.0); Lymphocytes % 23.9 % (21.3-54.2); Mean Corpuscular HGB Conc 32.4 GM/DL (32-36); Mean Corpuscular Volume 87.3 FL (87-102); Mean Platelet Volume 10.9 FL (9.6-12.0); Monocytes % 12.6 % (1.7-12.7); Neutrophils % 57.7 % (38.7-73.9); Platelet Count 219 T/CUMM (130-400); Red Cell Distribution Width 15.2 % (9.3-17.3); White Blood Count 5.2 T/CUMM (4-12)
[2020-11-10 05:23] LABS: Hypochromasia 1+
[2020-11-10 05:24] LABS: Anisocytosis 1+; Microcytosis 1+; Ovalocytes Slight
[2020-11-10 05:25] LABS: Platelet Estimate Normal
[2020-11-10 05:53] LABS: Calcium 8.8 MG/DL (8.5-10.1); Osmolality,Calculated 278.3 MOS/KG (273-304); Potassium 3.5 MMOL/L (3.5-5.1)
[2020-11-10] MEDS: INSULIN LISPRO 100 UNIT/ML SUBCUT SCH ×4 (08:00→21:47)
[2020-11-10] MEDS: NYSTATIN 500,000 UNIT/5 ML UDCUP SWISH/SWAL SCH ×4 (09:13→21:50)
[2020-11-10] MEDS: MAGNESIUM CHLORIDE 64 MG TABLET PO SCH ×2 (09:14→21:50)
[2020-11-10] MEDS: PANTOPRAZOLE 40 MG TABLET PO SCH ×2 (09:14→21:49)
[2020-11-10] MEDS: COLESTIPOL 1 GM TABLET PO SCH (09:14)
[2020-11-10] MEDS: ASCORBIC ACID 500 MG TABLET PO SCH ×2 (09:14→21:50)
[2020-11-10] MEDS: FLUCONAZOLE 100 MG TABLET PO SCH (09:14)
[2020-11-10] MEDS: GABAPENTIN 300 MG CAPSULE PO SCH ×4 (09:14→21:49)
[2020-11-10] MEDS: ENOXAPARIN 40 MG/0.4 ML SYRINGE SUBCUT SCH (21:48)
[2020-11-11] MEDS: INSULIN LISPRO 100 UNIT/ML SUBCUT SCH ×2 (08:52→11:55)
[2020-11-11] MEDS: COLESTIPOL 1 GM TABLET PO SCH (08:54)
[2020-11-11] MEDS: FLUCONAZOLE 100 MG TABLET PO SCH (08:54)
[2020-11-11] MEDS: NYSTATIN 500,000 UNIT/5 ML UDCUP SWISH/SWAL SCH ×2 (08:54→12:51)
[2020-11-11] MEDS: PANTOPRAZOLE 40 MG TABLET PO SCH (08:55)
[2020-11-11] MEDS: ASCORBIC ACID 500 MG TABLET PO SCH (08:55)
[2020-11-11] MEDS: GABAPENTIN 300 MG CAPSULE PO SCH ×2 (08:55→12:51)
[2020-11-11] MEDS: MAGNESIUM CHLORIDE 64 MG TABLET PO SCH (08:55)
[2020-11-11] MEDS ORDERED: METOPROLOL SUCCINATE XL 50 MG TABLET PO SCH (09:30)
[2020-11-11 11:43] VITALS: BP 130/81
== END 2020-11-11 14:55 | disposition home health service (06) | DRG 392 ==
LOC: EDUNIT# → N.ED 18:01 → N.EDINP 18:56 → N.3E 20:46
PROVIDERS: ADMIT Surgery; ATTEND Surgery